=== PATIENT | male | born 1955 | race American Indian/Alaskan Native ===

== ENCOUNTER 2017-01-31 17:37 | Inpatient (IN) | payer MEDICARE ==
[2017-01-31 21:13] LABS: Hematocrit 46.9 % (35.5-45.6); Hemoglobin 14.9 gm/dl (11.8-15.2); Mean Corpuscular HGB Conc 32 % (32-34); Mean Corpuscular Volume 77 fl (84-94); Red Blood Count 6.11 M/mm3 (3.65-5.03); Red Cell Distribution Width 15.6 % (13.2-15.2); White Blood Count 12.8 K/mm3 (4.5-11.0)
[2017-01-31 21:15] LABS: Mean Corpuscular Hemoglobin 24 pg (28-32)
[2017-01-31 21:25] LABS: Bacteria,Urine 2+ /HPF (Negative); Bilirubin,Urine NEG (Negative); Blood,Urine SM (Negative); Ketones,Urine NEG (Negative); Leukocyte Esterase,Urine LG (Negative); Mucus,Urine FEW /HPF; Nitrite,Urine NEG (Negative)
[2017-01-31] MEDS ORDERED: cefTRIAXone 1 GM in NACL 0.9% 20 ML IV ONE (21:41)
[2017-01-31 21:58] LABS: Basophils % (Manual) 0 % (0.0-1.8); Blastocytes % (Manual) 0 %; Eosinophils % (Manual) 0 % (0.0-4.3)
[2017-01-31 21:59] LABS: Platelet Estimate Appears Decreased
[2017-01-31 22:00] LABS: Target Cells Few
[2017-01-31 22:01] LABS: Anisocytosis Few; Diff Status Complete; Platelet Count 36 K/mm3 (140-440); Sodium TNR mmol/L (137-145)
[2017-01-31 22:03] LABS: Potassium TNR mmol/L (3.6-5.0)
[2017-01-31 22:04] LABS: Anion Gap TNR mmol/L; BUN/Creatinine Ratio TNR; Blood Urea Nitrogen TNR mg/dL (9-20); Carbon Dioxide TNR mmol/L (22-30); Chloride TNR mmol/L (98-107); Glucose TNR mg/dL (75-100)
[2017-01-31 22:05] LABS: Alanine Aminotransferase TNR units/L (7-56); Albumin TNR g/dL (3.9-5); Albumin/Globulin Ratio TNR %; Alkaline Phosphatase TNR units/L (35-129); Bilirubin,Total TNR mg/dL (0.1-1.2); Calcium TNR mg/dL (8.4-10.2); Total Protein TNR g/dL (6.3-8.2)
--- NOTE | 2017-01-31 22:53 | Emergency Department Report ---
HPI - General Chief Complaint: Fever Time Seen by Provider: 01/31/17 20:03 - HPI HPI: This is a 61 year-old male presents to the emergency department by EMS from his care home in [place] with report of a fever and some coffee-ground emesis. He has a past medical history of dementia, GERD, HIV , seizures, CVA and hypertension. His physician is listed as a Dr. Stone. The patient himself is a poor story and secondary to his current and possibly chronic conditions. He did not receive anything for her symptoms in route. ED Past Medical Hx - Past Medical History Previous Medical History?: Yes Hx GERD: Yes Hx Seizures: Yes Hx Dementia: Yes Hx HIV: Yes - Surgical History Additional Surgical History: Unknown - Social History Smoking Status: Unknown if ever smoked - Medications Home Medications: Home Medications Medication Instructions Recorded Confirmed Last Taken Type Acetaminophen 650 mg FEEDTUBE Q6HR PRN 02/01/17 02/01/17 Unknown History Coreg 12.5 mg FEEDTUBE Q12HR 02/01/17 02/01/17 Unknown History Docusate Sodium 100 mg FEEDTUBE BID 02/01/17 02/01/17 Unknown History Famotidine [Pepcid] 20 mg FEEDTUBE Q12HR 02/01/17 02/01/17 Unknown History Ferrous Sulfate [Ferosul Oral Liq] 220 mg FEEDTUBE QDAY 02/01/17 02/01/17 Unknown History Glycerin 1 suppositor WA QDAY PRN 02/01/17 02/01/17 Unknown History Keppra ORAL LIQ 1,500 mg FEEDTUBE Q12HR 02/01/17 02/01/17 Unknown History Senna S Tablet 17.2 mg FEEDTUBE QHS 02/01/17 02/01/17 Unknown History VALPROIC ACID Liq 125 mg FEEDTUBE Q8HR 02/01/17 02/01/17 Unknown History traMADol 100 mg FEEDTUBE Q8HR 02/01/17 02/01/17 01/31/17 14:00 History ED Review of Systems ROS: Stated complaint: GI BLEED Other details as noted in HPI Comment: Unobtainable due to pts medical conditions Physical Exam - Physical Exam Vital Signs: Vital Signs 01/31/17 01/31/17 01/31/17 18:34 19:49 19:50 Temperature 99.6 F Pulse Rate 104 H Respiratory 22 Rate Blood Pressure 98/79 Blood Pressure 98/79 [Left] O2 Sat by Pulse 96 96 97 Oximetry 01/31/17 01/31/17 01/31/17 19:51 19:53 19:54 Temperature Pulse Rate 109 H 108 H 110 H Respiratory 15 13 Rate Blood Pressure 113/81 113/81 Blood Pressure [Left] O2 Sat by Pulse 98 97 93 Oximetry 01/31/17 01/31/17 01/31/17 19:55 19:57 19:59 Temperature Pulse Rate 108 H 107 H 107 H Respiratory 25 H 29 H 26 H Rate Blood Pressure 113/81 113/81 113/81 Blood Pressure [Left] O2 Sat by Pulse 97 97 100 Oximetry 01/31/17 01/31/17 01/31/17 20:19 20:20 20:21 Temperature Pulse Rate Respiratory Rate Blood Pressure 91/61 95/68 95/68 Blood Pressure [Left] O2 Sat by Pulse 97 98 95 Oximetry 01/31/17 01/31/17 01/31/17 20:23 20:25 20:27 Temperature Pulse Rate Respiratory Rate Blood Pressure 95/68 95/68 95/68 Blood Pressure [Left] O2 Sat by Pulse 97 93 93 Oximetry 01/31/17 01/31/17 01/31/17 20:29 20:31 20:32 Temperature Pulse Rate Respiratory Rate Blood Pressure 95/68 95/68 Blood Pressure [Left] O2 Sat by Pulse 95 100 92 Oximetry 01/31/17 01/31/17 01/31/17 20:33 20:35 20:37 Temperature Pulse Rate 108 H 108 H 108 H Respiratory 23 22 Rate Blood Pressure 95/68 95/68 95/68 Blood Pressure [Left] O2 Sat by Pulse 96 97 98 Oximetry 01/31/17 01/31/17 01/31/17 20:39 20:40 20:41 Temperature Pulse Rate 107 H 108 H 109 H Respiratory 22 22 24 Rate Blood Pressure 95/68 98/77 98/77 Blood Pressure [Left] O2 Sat by Pulse 95 96 96 Oximetry 01/31/17 01/31/17 01/31/17 20:43 20:45 20:47 Temperature Pulse Rate 109 H 108 H 105 H Respiratory 25 H 22 28 H Rate Blood Pressure 98/77 98/77 98/77 Blood Pressure [Left] O2 Sat by Pulse 96 97 98 Oximetry 01/31/17 01/31/17 01/31/17 20:49 20:51 20:52 Temperature Pulse Rate 107 H 106 H 105 H Respiratory 17 19 22 Rate Blood Pressure 98/77 98/77 95/68 Blood Pressure [Left] O2 Sat by Pulse 98 97 98 Oximetry 01/31/17 01/31/17 01/31/17 20:53 20:55 20:57 Temperature Pulse Rate 115 H 108 H 106 H Respiratory 30 H 20 21 Rate Blood Pressure 95/68 95/68 95/68 Blood Pressure [Left] O2 Sat by Pulse 94 97 98 Oximetry 01/31/17 01/31/17 01/31/17 20:58 20:59 21:00 Temperature Pulse Rate 106 H 105 H 106 H Respiratory 20 19 21 Rate Blood Pressure 98/77 95/68 100/82 Blood Pressure [Left] O2 Sat by Pulse 98 98 99 Oximetry 01/31/17 01/31/17 01/31/17 21:01 21:03 21:05 Temperature Pulse Rate 106 H 106 H 107 H Respiratory 23 18 21 Rate Blood Pressure 100/82 100/82 100/82 Blood Pressure [Left] O2 Sat by Pulse 99 96 Oximetry 01/31/17 01/31/17 01/31/17 21:07 21:09 21:11 Temperature Pulse Rate 107 H 105 H 112 H Respiratory 25 H 27 H 22 Rate Blood Pressure 100/82 100/82 100/82 Blood Pressure [Left] O2 Sat by Pulse 97 96 93 Oximetry 01/31/17 01/31/17 01/31/17 21:13 21:15 21:17 Temperature Pulse Rate 106 H 107 H 106 H Respiratory 24 24 23 Rate Blood Pressure 100/82 100/82 100/82 Blood Pressure [Left] O2 Sat by Pulse 96 98 94 Oximetry 01/31/17 01/31/17 01/31/17 21:19 21:21 21:23 Temperature Pulse Rate 107 H 108 H 108 H Respiratory 26 H 23 20 Rate Blood Pressure 100/82 100/82 98/77 Blood Pressure [Left] O2 Sat by Pulse 93 97 98 Oximetry 01/31/17 01/31/17 01/31/17 21:25 21:27 21:29 Temperature Pulse Rate 105 H 105 H 108 H Respiratory 25 H 26 H 40 H Rate Blood Pressure 98/77 98/77 98/77 Blood Pressure [Left] O2 Sat by Pulse 97 95 98 Oximetry 01/31/17 01/31/17 01/31/17 21:31 21:33 21:34 Temperature Pulse Rate 105 H 94 H 107 H Respiratory 27 H 23 18 Rate Blood Pressure 98/77 98/77 108/78 Blood Pressure [Left] O2 Sat by Pulse 96 96 94 Oximetry 01/31/17 01/31/17 01/31/17 21:35 21:37 21:39 Temperature Pulse Rate 107 H 107 H 112 H Respiratory 20 15 16 Rate Blood Pressure 108/78 108/78 108/78 Blood Pressure [Left] O2 Sat by Pulse 98 96 87 Oximetry 01/31/17 01/31/17 21:40 21:41 Temperature Pulse Rate 109 H 107 H Respiratory 22 20 Rate Blood Pressure 107/81 107/81 Blood Pressure [Left] O2 Sat by Pulse 91 96 Oximetry Physical Exam: GENERAL: Patient is chronically ill and debilitated appearing. Patient is very thin and borderline cachectic. HENT: Normocephalic. Atraumatic. Patient has moist mucous membranes. EYES: Extraocular motions are intact. NECK: Supple. Trachea is midline. CHEST/LUNGS: Clear to auscultation. There is no respiratory distress noted. HEART/CARDIOVASCULAR: Regular. There is no tachycardia. There is no gallop rub or murmur. ABDOMEN: Abdomen is soft, nontender. Patient has normal bowel sounds. There is no abdominal distention. There is a feeding tube seen in the mid left abdomen. SKIN: Skin is warm and dry. NEURO: The patient is awake and follows some commands. Withdraws to painful stimuli. MUSCULOSKELETAL: There is no tenderness. Patient has lower extremity contractures. ED Course Vital Signs 01/31/17 01/31/17 01/31/17 18:34 19:49 19:50 Temperature 99.6 F Pulse Rate 104 H Respiratory 22 Rate Blood Pressure 98/79 Blood Pressure 98/79 [Left] O2 Sat by Pulse 96 96 97 Oximetry 01/31/17 01/31/17 01/31/17 19:51 19:53 19:54 Temperature Pulse Rate 109 H 108 H 110 H Respiratory 15 13 Rate Blood Pressure 113/81 113/81 Blood Pressure [Left] O2 Sat by Pulse 98 97 93 Oximetry 01/31/17 01/31/17 01/31/17 19:55 19:57 19:59 Temperature Pulse Rate 108 H 107 H 107 H Respiratory 25 H 29 H 26 H Rate Blood Pressure 113/81 113/81 113/81 Blood Pressure [Left] O2 Sat by Pulse 97 97 100 Oximetry 01/31/17 01/31/17 01/31/17 20:19 20:20 20:21 Temperature Pulse Rate Respiratory Rate Blood Pressure 91/61 95/68 95/68 Blood Pressure [Left] O2 Sat by Pulse 97 98 95 Oximetry 01/31/17 01/31/17 01/31/17 20:23 20:25 20:27 Temperature Pulse Rate Respiratory Rate Blood Pressure 95/68 95/68 95/68 Blood Pressure [Left] O2 Sat by Pulse 97 93 93 Oximetry 01/31/17 01/31/17 01/31/17 20:29 20:31 20:32 Temperature Pulse Rate Respiratory Rate Blood Pressure 95/68 95/68 Blood Pressure [Left] O2 Sat by Pulse 95 100 92 Oximetry 01/31/17 01/31/17 01/31/17 20:33 20:35 20:37 Temperature Pulse Rate 108 H 108 H 108 H Respiratory 23 22 Rate Blood Pressure 95/68 95/68 95/68 Blood Pressure [Left] O2 Sat by Pulse 96 97 98 Oximetry 01/31/17 01/31/17 01/31/17 20:39 20:40 20:41 Temperature Pulse Rate 107 H 108 H 109 H Respiratory 22 22 24 Rate Blood Pressure 95/68 98/77 98/77 Blood Pressure [Left] O2 Sat by Pulse 95 96 96 Oximetry 01/31/17 01/31/17 01/31/17 20:43 20:45 20:47 Temperature Pulse Rate 109 H 108 H 105 H Respiratory 25 H 22 28 H Rate Blood Pressure 98/77 98/77 98/77 Blood Pressure [Left] O2 Sat by Pulse 96 97 98 Oximetry 01/31/17 01/31/17 01/31/17 20:49 20:51 20:52 Temperature Pulse Rate 107 H 106 H 105 H Respiratory 17 19 22 Rate Blood Pressure 98/77 98/77 95/68 Blood Pressure [Left] O2 Sat by Pulse 98 97 98 Oximetry 01/31/17 01/31/17 01/31/17 20:53 20:55 20:57 Temperature Pulse Rate 115 H 108 H 106 H Respiratory 30 H 20 21 Rate Blood Pressure 95/68 95/68 95/68 Blood Pressure [Left] O2 Sat by Pulse 94 97 98 Oximetry 01/31/17 01/31/17 01/31/17 20:58 20:59 21:00 Temperature Pulse Rate 106 H 105 H 106 H Respiratory 20 19 21 Rate Blood Pressure 98/77 95/68 100/82 Blood Pressure [Left] O2 Sat by Pulse 98 98 99 Oximetry 01/31/17 01/31/17 01/31/17 21:01 21:03 21:05 Temperature Pulse Rate 106 H 106 H 107 H Respiratory 23 18 21 Rate Blood Pressure 100/82 100/82 100/82 Blood Pressure [Left] O2 Sat by Pulse 99 96 Oximetry 01/31/17 01/31/17 01/31/17 21:07 21:09 21:11 Temperature Pulse Rate 107 H 105 H 112 H Respiratory 25 H 27 H 22 Rate Blood Pressure 100/82 100/82 100/82 Blood Pressure [Left] O2 Sat by Pulse 97 96 93 Oximetry 01/31/17 01/31/17 01/31/17 21:13 21:15 21:17 Temperature Pulse Rate 106 H 107 H 106 H Respiratory 24 24 23 Rate Blood Pressure 100/82 100/82 100/82 Blood Pressure [Left] O2 Sat by Pulse 96 98 94 Oximetry 01/31/17 01/31/17 01/31/17 21:19 21:21 21:23 Temperature Pulse Rate 107 H 108 H 108 H Respiratory 26 H 23 20 Rate Blood Pressure 100/82 100/82 98/77 Blood Pressure [Left] O2 Sat by Pulse 93 97 98 Oximetry 01/31/17 01/31/17 01/31/17 21:25 21:27 21:29 Temperature Pulse Rate 105 H 105 H 108 H Respiratory 25 H 26 H 40 H Rate Blood Pressure 98/77 98/77 98/77 Blood Pressure [Left] O2 Sat by Pulse 97 95 98 Oximetry 01/31/17 01/31/17 01/31/17 21:31 21:33 21:34 Temperature Pulse Rate 105 H 94 H 107 H Respiratory 27 H 23 18 Rate Blood Pressure 98/77 98/77 108/78 Blood Pressure [Left] O2 Sat by Pulse 96 96 94 Oximetry 01/31/17 01/31/17 01/31/17 21:35 21:37 21:39 Temperature Pulse Rate 107 H 107 H 112 H Respiratory 20 15 16 Rate Blood Pressure 108/78 108/78 108/78 Blood Pressure [Left] O2 Sat by Pulse 98 96 87 Oximetry 01/31/17 01/31/17 21:40 21:41 Temperature Pulse Rate 109 H 107 H Respiratory 22 20 Rate Blood Pressure 107/81 107/81 Blood Pressure [Left] O2 Sat by Pulse 91 96 Oximetry ED Medical Decision Making - Lab Data Result diagrams: 02/01/17 12:35 01/31/17 22:50 - Radiology Data Radiology results: report reviewed, image reviewed interpreted by me: Chest x-ray does not show any acute process. There are no pleural effusions, obvious pneumonia and there is no pneumothorax. Abdominal x-ray shows nonspecific nonobstructive bowel gas. CT HEAD WITHOUT CONTRAST: HISTORY: Fever, feeling sick. TECHNIQUE: Sequential CT images in 2.5 mm intervals. FINDINGS: No previous exam. There is moderate to severe volume loss for this patient's age. The ventricles are prominent but symmetric. This is probably secondary to central volume loss and not hydrocephalus. The basal cisterns are patent. There is severe diffuse hypoattenuation in the white matter primarily within the frontal lobes consistent with advanced chronic ischemic change. Small chronic cortical infarcts are suspected in the right frontal lobe. Solitary bilateral chronic lacunar infarcts are identified in both basal ganglia. There is no evidence for hemorrhage, mass, extra-axial fluid collection or large area of acute ischemia on noncontrast CT. Mild chronic ethmoid sinusitis is noted. The remaining sinuses are clear. The mastoid air cells are well-aerated. IMPRESSION: No acute intracranial process appreciated. Chronic findings as outlined above. Transcribed By: TTR Dictated By: SHANE YOUNG JR, MD Electronically Authenticated By: SHANE YOUNG JR, MD Signed Date/Time: 02/01/17 0751 - Medical Decision Making 61-year-old presents from care home with history of HIV. He appears almost cachectic and malnourished. He had recorded fever at the nursing facility and some tachycardia here, mild leukocytosis, UTI all appearing to show sepsis. He was placed on antibiotics. There was no sign of the coffee-ground emesis that was mentioned for transportation. Patient admitted to the hospital and accepted by Dr. Fisher. Critical Care Time: No Critical care attestation.: If time is entered above; I have spent that time in minutes in the direct care of this critically ill patient, excluding procedure time. ED Disposition Clinical Impression: Toxic encephalopathy Sepsis Qualifiers: Sepsis type: sepsis due to unspecified organism Qualified Code(s): A41.9 - Sepsis, unspecified organism UTI (urinary tract infection) Qualifiers: Urinary tract infection type: acute cystitis Hematuria presence: without hematuria Qualified Code(s): N30.00 - Acute cystitis without hematuria Disposition: OP ADMIT IP TO THIS HOSP Is pt being admited?: Yes Condition: Fair
--- NOTE | 2017-01-31 23:06 | XRay Report ---
FINAL REPORT EXAM: XR ABD SERIES W CXR 1V HISTORY: GI Bleed TECHNIQUE: Supine and decubitus views of the abdomen PRIORS: None. FINDINGS: Moderate amount of stool and gas present within the colon. No evidence of colonic or small bowel dilatation. No signs of free air. No abnormal calcifications are identified. IMPRESSION: Nonobstructive bowel gas pattern. No acute abnormality seen.
[2017-01-31 23:38] LABS: Alanine Aminotransferase 145 units/L (7-56); Albumin 3.2 g/dL (3.9-5); Albumin/Globulin Ratio 0.5 %; Alkaline Phosphatase 73 units/L (35-129); Anion Gap 15 mmol/L; BUN/Creatinine Ratio 62; Blood Urea Nitrogen 37 mg/dL (9-20); Calcium 9.2 mg/dL (8.4-10.2); Carbon Dioxide 27 mmol/L (22-30); Chloride 106.8 mmol/L (98-107); Glucose 109 mg/dL (75-100); Potassium 3.7 mmol/L (3.6-5.0); Sodium 145 mmol/L (137-145); Total Protein 9.5 g/dL (6.3-8.2)
[2017-01-31] MEDS ORDERED: NACL 0.9% 500 ML 500 ML IV ONE (23:44)
--- NOTE | 2017-02-01 00:44 | History and Physical Report ---
History of Present Illness Chief complaint: fever, confusion History of present illness: 61 YO Male Senior Care Resident at [place] with HIV, Severe Malnutrition, Seizure Disorder, Dementia presents to ED for evaluation. Pt unable to provide history due to stupor, and confusion. Pt history taked from ED staff, and medical record, as well as SNF staff. As per staff, the patient was found to have fever, and coffee-ground emesis today. EMS notified, and patient transported to [facility] for evaluation. Pt seen and evaluated in ED and found to have Evidence of sepsis. Pt initiated on sepsis protocol. No reports of chills, NVD, Syncope, BRBPR, Recent ill contacts, leg swelling/calf pain, prolonged travel/immobility, Trauma, or medication noncompliance. Past History Past Medical History: GERD, HIV/AIDS, stroke Past Surgical History: Other (G tube placement) Social history: single. denies: smoking, alcohol abuse, prescription drug abuse Family history: hypertension Medications and Allergies Allergies Allergy/AdvReac Type Severity Reaction Status Date / Time No Known Allergies Allergy Unverified 01/31/17 20:00 Home Medications Medication Instructions Recorded Confirmed Last Taken Type Acetaminophen 650 mg FEEDTUBE Q6HR PRN 02/01/17 02/01/17 Unknown History Coreg 12.5 mg FEEDTUBE Q12HR 02/01/17 02/01/17 Unknown History Docusate Sodium 100 mg FEEDTUBE BID 02/01/17 02/01/17 Unknown History Famotidine [Pepcid] 20 mg FEEDTUBE Q12HR 02/01/17 02/01/17 Unknown History Ferrous Sulfate [Ferosul Oral Liq] 220 mg FEEDTUBE QDAY 02/01/17 02/01/17 Unknown History Glycerin 1 suppositor WA QDAY PRN 02/01/17 02/01/17 Unknown History Keppra ORAL LIQ 1,500 mg FEEDTUBE Q12HR 02/01/17 02/01/17 Unknown History Senna S Tablet 17.2 mg FEEDTUBE QHS 02/01/17 02/01/17 Unknown History VALPROIC ACID Liq 125 mg FEEDTUBE Q8HR 02/01/17 02/01/17 Unknown History traMADol 100 mg FEEDTUBE Q8HR 02/01/17 02/01/17 01/31/17 14:00 History Review of Systems ROS unobtainable: due to mental status Exam - Constitutional Vitals: Temp Pulse Resp BP Pulse Ox 98.6 F 103 H 23 115/76 98 01/31/17 23:19 01/31/17 23:41 01/31/17 23:41 01/31/17 23:41 01/31/17 23:41 General appearance: Present: mild distress, cachectic - EENT Eyes: Present: PERRL ENT: hearing intact, clear oral mucosa - Neck Neck: Present: supple, normal ROM - Respiratory Respiratory: bilateral: diminished - Cardiovascular Heart Sounds: Present: S1 & S2. Absent: rub, click - Extremities Extremities: pulses symmetrical, No edema Peripheral Pulses: abnormal (Capillary refill: 4 seconds) - Abdominal General gastrointestinal: Present: soft, non-distended, other (Peg in place) Male genitourinary: Present: normal - Integumentary Integumentary: Present: clear, dry, clammy, decreased turgor - Musculoskeletal Musculoskeletal: generalized weakness - Psychiatric Psychiatric: no intact judgment & insight, no memory intact - Neurologic Neurologic: no gait normal Results - Labs CBC & Chem 7: 01/31/17 20:35 01/31/17 22:50 Labs: Abnormal lab results 01/31/17 01/31/17 01/31/17 Range/Units 20:35 21:12 22:50 WBC 12.8 H (4.5-11.0) K/mm3 RBC 6.11 H (3.65-5.03) M/mm3 Hct 46.9 H (35.5-45.6) % MCV 77 L (84-94) fl MCH 24 L (28-32) pg RDW 15.6 H (13.2-15.2) % Plt Count 36 L (140-440) K/mm3 Lymphocytes % (Manual) 37.0 H (13.4-35.0) % Monocytes % (Manual) 19.0 H (0.0-7.3) % Monocytes # (Manual) 2.4 H (0.0-0.8) K/mm3 BUN 37 H (9-20) mg/dL Creatinine 0.6 L (0.8-1.5) mg/dL Glucose 109 H (75-100) mg/dL AST 234 H (5-40) units/L ALT 145 H (7-56) units/L Total Protein 9.5 H (6.3-8.2) g/dL Albumin 3.2 L (3.9-5) g/dL Urine WBC (Auto) 88.0 H (0.0-6.0) /HPF Assessment and Plan - Patient Problems (1) Sepsis Current Visit: Yes Status: Acute Qualifiers: Sepsis type: sepsis due to unspecified organism Qualified Code(s): A41.9 - Sepsis, unspecified organism Plan to address problem: IV abx, IVF resuscitation, monitor uop q shift, blood cultures, urinalysis, serial lactic acid, repeat cbc,bmp (2) UTI (urinary tract infection) Current Visit: Yes Status: Acute Plan to address problem: IV abx, IVF, supportive care, (3) Toxic encephalopathy Current Visit: Yes Status: Acute Plan to address problem: Treat sepsis, supportive care, IVF resuscitation. (4) HIV encephalopathy Current Visit: Yes Status: Acute Plan to address problem: Supportive care, CT head without contrast, outpatient ID F/U, (5) Seizure Current Visit: Yes Status: Acute Plan to address problem: resume anti epileptic therapy. neuro checks, supportive care. (6) DVT prophylaxis Current Visit: Yes Status: Acute
[2017-02-01] MEDS ORDERED: DULCOLAX PR PRN (00:46)
[2017-02-01] MEDS ORDERED: TYLENOL PO PRN (00:46)
[2017-02-01] MEDS ORDERED: ZOFRAN IV PRN (00:46)
[2017-02-01] MEDS ORDERED: PROVENTIL IH PRN (00:46)
[2017-02-01] MEDS ORDERED: MILK OF MAGNESIA PO PRN (00:46)
[2017-02-01] MEDS ORDERED: VANCOMYCIN VIAL IV ONE (00:49)
[2017-02-01] MEDS ORDERED: NACL 0.9% 1000 ML IV ONE (00:49)
[2017-02-01] MEDS ORDERED: VANCOMYCIN PHARMACY TO DOSE IV SCH (02:00)
[2017-02-01] MEDS ORDERED: VANCOMYCIN/NS 1 GM/250 ML 1 GM/250 ML BAG IV ONE (03:00)
[2017-02-01] MEDS ORDERED: TYLENOL FEEDTUBE PRN (04:47)
[2017-02-01] MEDS ORDERED: GLYCERIN ADULT 2 GM PR PRN (04:47)
[2017-02-01] MEDS ORDERED: ULTRAM FEEDTUBE PRN (06:00)
--- NOTE | 2017-02-01 07:56 | Cat Scan Report ---
CT HEAD WITHOUT CONTRAST: HISTORY: Fever, feeling sick. TECHNIQUE: Sequential CT images in 2.5 mm intervals. FINDINGS: No previous exam. There is moderate to severe volume loss for this patient's age. The ventricles are prominent but symmetric. This is probably secondary to central volume loss and not hydrocephalus. The basal cisterns are patent. There is severe diffuse hypoattenuation in the white matter primarily within the frontal lobes consistent with advanced chronic ischemic change. Small chronic cortical infarcts are suspected in the right frontal lobe. Solitary bilateral chronic lacunar infarcts are identified in both basal ganglia. There is no evidence for hemorrhage, mass, extra-axial fluid collection or large area of acute ischemia on noncontrast CT. Mild chronic ethmoid sinusitis is noted. The remaining sinuses are clear. The mastoid air cells are well-aerated. IMPRESSION: No acute intracranial process appreciated. Chronic findings as outlined above.
[2017-02-01] MEDS: DepaKENE Liq FEEDTUBE SCH ×3 (07:58→22:40)
[2017-02-01] MEDS ORDERED: ROCEPHIN/NS 2 GM/100 ML 2 GM/100 ML BAG IV SCH (10:00)
[2017-02-01] MEDS ORDERED: KEPPRA FEEDTUBE SCH (10:00)
[2017-02-01] MEDS ORDERED: COREG FEEDTUBE SCH (10:00)
[2017-02-01] MEDS ORDERED: PEPCID FEEDTUBE SCH (10:00)
[2017-02-01 13:04] LABS: Mean Corpuscular HGB Conc 31 % (32-34); Mean Corpuscular Volume 78 fl (84-94); Red Blood Count 5.91 M/mm3 (3.65-5.03); Red Cell Distribution Width 15.7 % (13.2-15.2); White Blood Count 8.2 K/mm3 (4.5-11.0)
[2017-02-01 13:05] LABS: Hemoglobin 14.2 gm/dl (11.8-15.2); Mean Corpuscular Hemoglobin 24 pg (28-32)
[2017-02-01 13:29] LABS: Albumin 2.9 g/dL (3.9-5); Albumin/Globulin Ratio 0.5 %; Bilirubin,Direct 0.2 mg/dL (0-0.2); Bilirubin,Indirect 0.6 mg/dL; Bilirubin,Total 0.8 mg/dL (0.1-1.2); Total Protein 9.2 g/dL (6.3-8.2)
[2017-02-01 14:18] LABS: Basophils % (Manual) 0 % (0.0-1.8); Blastocytes % (Manual) 0 %; Eosinophils % (Manual) 0 % (0.0-4.3)
[2017-02-01 14:19] LABS: Anisocytosis RARE; Diff Status Complete; Platelet Count 124 K/mm3 (140-440); Platelet Estimate Consistent w Auto; Target Cells Rare
[2017-02-01] MEDS: ROCEPHIN IV SCH (14:21)
[2017-02-01] MEDS: NACL 0.9% IV SCH (14:21)
[2017-02-01] MEDS: FERROUS SULFATE FEEDTUBE SCH (14:23)
[2017-02-01] MEDS: COLACE FEEDTUBE SCH ×2 (14:23→22:40)
[2017-02-01] MEDS ORDERED: D5/0.45NS 1,000 ML IV SCH (15:00)
--- NOTE | 2017-02-01 16:11 | Progress Note ---
Assessment and Plan Assessment and plan: Patient is a 61 YO Male Longterm Resident at [facility] with HIV, Severe Malnutrition, Seizure Disorder, Dementia presents to ED for evaluation for fever and coffee ground emesis. Pt unable to provide history due to stupor, and confusion. Pt history taked from ED staff, and medical record, as well as SNF staff. As per staff, the patient was found to have fever, and coffee-ground emesis today. EMS notified, and patient transported to [facility] for evaluation. EMS reports high fever but non is documented on arrival to the hospital, His PEG tube was clamped in the ER and appears possibly disloged. P Sepsis- Possible secondary to acute cystits-POA Acute Cystitis Chronic Metabolic Encephalopathy HIV infection Seizure Disorder Chronic immobility due to fraility. Sacral Pressure Ulcer stage 1 Plan: * Continue supportive care * GI evaluation * IV fluids resuscitation * Monitor H/H appears stable * Repeat PLT normalized * DVT/GI prophy * No family at bedside * Passive range of motion * Wound care eval and treat * Pressure prevention strategy History Interval history: Patient seen and examined, in no acute distress, but with confusion, appears to be baseline. Hospitalist Physical - Physical exam Narrative exam: VITAL SIGNS: Reviewed. GENERAL: The patient appeared chronically ill. Vital signs as documented. HEAD: No signs of head trauma. EYES: Pupils are equal. Extraocular motions intact. EARS: Hearing grossly intact. MOUTH: Right facial droop.. NECK: No adenopathy, no JVD. CHEST: Chest with clear breath sounds bilaterally. No wheezes, rales, or rhonchi. CARDIAC: Regular rate and rhythm. S1 and S2, without murmurs, gallops, or rubs. VASCULAR: No Edema. Peripheral pulses normal and equal in all extremities. ABDOMEN: Soft, without detectable tenderness. Scaphoid, PEG tube in place No sign of distention. No rebound or guarding, and no masses palpated. Bowel Sounds normal. MUSCULOSKELETAL: Contracted. Extremities without clubbing, cyanosis or edema. NEUROLOGIC EXAM: Awake oriented to person only. Follow some commands PSYCHIATRIC: Mood normal. SKIN: Left hip ulcer and stage I pressure ulcer. - Constitutional Vitals: Temp Pulse Resp BP Pulse Ox 98.1 F 106 H 44 H 114/86 98 02/01/17 08:52 02/01/17 02:16 02/01/17 08:52 02/01/17 08:52 02/01/17 12:19 General appearance: Present: mild distress, cachectic Results - Labs CBC & Chem 7: 02/01/17 12:35 01/31/17 22:50 Labs: Laboratory Last Values WBC 8.2 K/mm3 (4.5-11.0) 02/01/17 12:35 RBC 5.91 M/mm3 (3.65-5.03) H 02/01/17 12:35 Hgb 14.2 gm/dl (11.8-15.2) 02/01/17 12:35 Hct 46.0 % (35.5-45.6) H 02/01/17 12:35 MCV 78 fl (84-94) L 02/01/17 12:35 MCH 24 pg (28-32) L 02/01/17 12:35 MCHC 31 % (32-34) L 02/01/17 12:35 RDW 15.7 % (13.2-15.2) H 02/01/17 12:35 Plt Count 124 K/mm3 (140-440) L D 02/01/17 12:35 [place] % (Auto) Clutch Assembler 02/01/17 12:35 Lymph # Clutch Assembler 01/31/17 20:35 Add Manual Diff Complete 02/01/17 12:35 Total Counted 100 02/01/17 12:35 Seg Neutrophils % Clutch Assembler 01/31/17 20:35 Seg Neuts % (Manual) 42.0 % (40.0-70.0) 02/01/17 12:35 Band Neutrophils % 4.0 % 02/01/17 12:35 Lymphocytes % (Manual) 36.0 % (13.4-35.0) H 02/01/17 12:35 Reactive Lymphs % (Man) 0 % 02/01/17 12:35 Monocytes % (Manual) 18.0 % (0.0-7.3) H 02/01/17 12:35 Eosinophils % (Manual) 0 % (0.0-4.3) 02/01/17 12:35 Basophils % (Manual) 0 % (0.0-1.8) 02/01/17 12:35 Metamyelocytes % 0 % 02/01/17 12:35 Myelocytes % 0 % 02/01/17 12:35 Promyelocytes % 0 % 02/01/17 12:35 Blast Cells % 0 % 02/01/17 12:35 Nucleated RBC % Not Reportable 02/01/17 12:35 Seg Neutrophils # Man 3.4 K/mm3 (1.8-7.7) 02/01/17 12:35 Band Neutrophils # 0.3 K/mm3 02/01/17 12:35 Lymphocytes # (Manual) 3.0 K/mm3 (1.2-5.4) 02/01/17 12:35 Abs React Lymphs (Man) 0.0 K/mm3 02/01/17 12:35 Monocytes # (Manual) 1.5 K/mm3 (0.0-0.8) H 02/01/17 12:35 Eosinophils # (Manual) 0.0 K/mm3 (0.0-0.4) 02/01/17 12:35 Basophils # (Manual) 0.0 K/mm3 (0.0-0.1) 02/01/17 12:35 Metamyelocytes # 0.0 K/mm3 02/01/17 12:35 Myelocytes # 0.0 K/mm3 02/01/17 12:35 Promyelocytes # 0.0 K/mm3 02/01/17 12:35 Blast Cells # 0.0 K/mm3 02/01/17 12:35 WBC Morphology Not Reportable 02/01/17 12:35 Hypersegmented Neuts Not Reportable 02/01/17 12:35 Hyposegmented Neuts Not Reportable 02/01/17 12:35 Hypogranular Neuts Not Reportable 02/01/17 12:35 Smudge Cells Not Reportable 02/01/17 12:35 Toxic Granulation Not Reportable 02/01/17 12:35 Toxic Vacuolation Not Reportable 02/01/17 12:35 Dohle Bodies Not Reportable 02/01/17 12:35 Pelger-Huet Anomaly Not Reportable 02/01/17 12:35 Inessa Rods Not Reportable 02/01/17 12:35 Platelet Estimate Consistent w auto 02/01/17 12:35 Clumped Platelets Not Reportable 02/01/17 12:35 Plt Clumps, EDTA Not Reportable 02/01/17 12:35 Large Platelets Not Reportable 02/01/17 12:35 Giant Platelets Not Reportable 02/01/17 12:35 Platelet Satelliting Not Reportable 02/01/17 12:35 Plt Morphology Comment Not Reportable 02/01/17 12:35 RBC Morphology Not Reportable 02/01/17 12:35 Dimorphic RBCs Not Reportable 02/01/17 12:35 Polychromasia Not Reportable 02/01/17 12:35 Hypochromasia Not Reportable 02/01/17 12:35 Poikilocytosis Not Reportable 02/01/17 12:35 Anisocytosis Rare 02/01/17 12:35 Microcytosis Not Reportable 02/01/17 12:35 Macrocytosis Not Reportable 02/01/17 12:35 Spherocytes Not Reportable 02/01/17 12:35 Pappenheimer Bodies Not Reportable 02/01/17 12:35 Sickle Cells Not Reportable 02/01/17 12:35 Target Cells Rare 02/01/17 12:35 Tear Drop Cells Not Reportable 02/01/17 12:35 Ovalocytes Not Reportable 02/01/17 12:35 Helmet Cells Not Reportable 02/01/17 12:35 [place] Bodies Not Reportable 02/01/17 12:35 [place] Rings Not Reportable 02/01/17 12:35 Magnet Cells Not Reportable 02/01/17 12:35 Bite Cells Not Reportable 02/01/17 12:35 Crenated Cell Not Reportable 02/01/17 12:35 Elliptocytes Not Reportable 02/01/17 12:35 Acanthocytes (Spur) Not Reportable 02/01/17 12:35 Rouleaux Not Reportable 02/01/17 12:35 Hemoglobin C Crystals Not Reportable 02/01/17 12:35 Schistocytes Not Reportable 02/01/17 12:35 Malaria parasites Not Reportable 02/01/17 12:35 Vamshi Bodies Not Reportable 02/01/17 12:35 Hem Pathologist Commnt No 02/01/17 12:35 Sodium 145 mmol/L (137-145) 01/31/17 22:50 Potassium 3.7 mmol/L (3.6-5.0) 01/31/17 22:50 Chloride 106.8 mmol/L (98-107) 01/31/17 22:50 Carbon Dioxide 27 mmol/L (22-30) 01/31/17 22:50 Anion Gap 15 mmol/L 01/31/17 22:50 BUN 37 mg/dL (9-20) H 01/31/17 22:50 Creatinine 0.6 mg/dL (0.8-1.5) L 01/31/17 22:50 Estimated GFR > 60 ml/min 01/31/17 22:50 BUN/Creatinine Ratio 62 % 01/31/17 22:50 Glucose 109 mg/dL (75-100) H 01/31/17 22:50 Lactic Acid 2.10 mmol/L (0.7-2.0) H* 02/01/17 08:33 Calcium 9.2 mg/dL (8.4-10.2) 01/31/17 22:50 Total Bilirubin 0.80 mg/dL (0.1-1.2) 02/01/17 12:35 Direct Bilirubin 0.2 mg/dL (0-0.2) 02/01/17 12:35 Indirect Bilirubin 0.6 mg/dL 02/01/17 12:35 AST 235 units/L (5-40) H 02/01/17 12:35 ALT 150 units/L (7-56) H 02/01/17 12:35 Alkaline Phosphatase 66 units/L (35-129) 02/01/17 12:35 Ammonia 64.0 umol/L (25-60) H 02/01/17 08:33 Total Protein 9.2 g/dL (6.3-8.2) H 02/01/17 12:35 Albumin 2.9 g/dL (3.9-5) L 02/01/17 12:35 Albumin/Globulin Ratio 0.5 % 02/01/17 12:35 Urine Color [place] (Yellow) 01/31/17 21:12 Urine Turbidity Clear (Clear) 01/31/17 21:12 Urine pH 5.0 (5.0-7.0) 01/31/17 21:12 Ur Specific [place] 1.019 (1.003-1.030) 01/31/17 21:12 Urine Protein 100 mg/dl mg/dL (Negative) 01/31/17 21:12 Urine Glucose (UA) Neg mg/dL (Negative) 01/31/17 21:12 Urine Ketones Neg mg/dL (Negative) 01/31/17 21:12 Urine Blood Sm (Negative) 01/31/17 21:12 Urine Nitrite Neg (Negative) 01/31/17 21:12 Urine Bilirubin Neg (Negative) 01/31/17 21:12 Urine Urobilinogen 2.0 mg/dL (<2.0) 01/31/17 21:12 Ur Leukocyte Esterase Lg (Negative) 01/31/17 21:12 Urine WBC (Auto) 88.0 /HPF (0.0-6.0) H 01/31/17 21:12 Urine RBC (Auto) 15.0 /HPF (0.0-6.0) 01/31/17 21:12 Urine Bacteria (Auto) 2+ /HPF (Negative) 01/31/17 21:12 Urine Mucus Few /HPF 01/31/17 21:12 Blood Type O POSITIVE 02/01/17 02:00 Antibody Screen Negative 02/01/17 02:00 - Imaging and Cardiology Chest x-ray: image reviewed (no acute pathology) CT Scan - head: image reviewed (no acute pathology, chronic changes noted.)
[2017-02-01] MEDS: KEPPRA 1,500 MG in NACL 0.9% 100 ML IV SCH ×2 (17:00→22:39)
[2017-02-01] MEDS: PEPCID IV SCH ×2 (18:44→22:39)
--- NOTE | 2017-02-01 18:59 | Ultrasound Report ---
FINAL REPORT EXAM: US ABDOMEN COMPLETE HISTORY: Transaminitis, TECHNIQUE: Ultrasound abdomen without contrast PRIORS: None. FINDINGS: Mildly increased echogenicity within the liver may reflect fatty infiltration No focal parenchymal abnormality seen in the visualized portion of the liver Common bile duct is within normal limits for patient's age 0.6 centimeters There is increased renal echogenicity bilaterally which likely reflects underlying medical renal disease. No evidence for hydronephrosis. There are shadowing echogenic foci seen within the lumen of the gallbladder. Gallbladder wall thickness is within normal limits 0.19 centimeters. No pericholecystic fluid identified IMPRESSION: Mild fatty infiltration of the liver Cholelithiasis. No sonographic evidence for acute cholecystitis Increased renal echogenicity likely reflects underlying medical renal disease
[2017-02-01] MEDS: VANCOMYCIN/NS 1 GM/250 ML 1 GM/250 ML BAG IV SCH (20:29)
[2017-02-01] MEDS ORDERED: SENOKOT FEEDTUBE SCH (22:00)
[2017-02-01] MEDS ORDERED: VANCOMYCIN 750 MG in NACL 0.9% 250ML 250 ML IV SCH (22:00)
[2017-02-02] MEDS: NACL 0.9% 1000 ML 1,000 ML IV SCH ×2 (03:25→17:57)
[2017-02-02] MEDS: VANCOMYCIN/NS 1 GM/250 ML 1 GM/250 ML BAG IV SCH ×2 (06:09→17:56)
[2017-02-02] MEDS: DepaKENE Liq FEEDTUBE SCH ×3 (06:11→22:52)
[2017-02-02 07:42] LABS: Alanine Aminotransferase 154 units/L (7-56); Albumin/Globulin Ratio 0.5 %; Alkaline Phosphatase 59 units/L (35-129); Anion Gap 17 mmol/L; BUN/Creatinine Ratio 82; Blood Urea Nitrogen 41 mg/dL (9-20); Calcium 8.7 mg/dL (8.4-10.2); Carbon Dioxide 25 mmol/L (22-30); Chloride 118.6 mmol/L (98-107); Glucose 90 mg/dL (75-100); Sodium 157 mmol/L (137-145); Total Protein 8.8 g/dL (6.3-8.2)
[2017-02-02 08:01] LABS: Hematocrit 42.9 % (35.5-45.6); Hemoglobin 13.4 gm/dl (11.8-15.2); Mean Corpuscular HGB Conc 31 % (32-34); Mean Corpuscular Volume 78 fl (84-94); Red Blood Count 5.49 M/mm3 (3.65-5.03); Red Cell Distribution Width 15.6 % (13.2-15.2)
[2017-02-02 08:02] LABS: Mean Corpuscular Hemoglobin 25 pg (28-32)
[2017-02-02 08:46] LABS: Platelet Count 112 K/mm3 (140-440)
[2017-02-02] MEDS: FERROUS SULFATE FEEDTUBE SCH (09:36)
[2017-02-02] MEDS: PEPCID IV SCH ×2 (09:37→22:51)
--- NOTE | 2017-02-02 09:37 | Progress Note ---
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 Pt unable to provide history due to stupor, and confusion. Pt history taked from ED staff, and medical record, as well as SNF staff. As per staff, the patient was found to have fever, and coffee-ground emesis today. EMS notified, and patient transported to [facility] for evaluation. EMS reports high fever but non is documented on arrival to the hospital, His PEG tube was clamped in the ER and appears possibly disloged. P Sepsis- Possible secondary to acute cystits-POA Acute Cystitis Chronic Metabolic Encephalopathy Hypernatremia HIV infection Seizure Disorder Chronic immobility due to fraility. Sacral Pressure Ulcer stage 1 Plan: * Continue supportive care * GI evaluation for PEG tube eval. Per staff non functional * change fluids to D5W * Monitor H/H appears stable * Repeat PLT normalized * DVT/GI prophy * No family at bedside * Passive range of motion * Wound care eval and treat * Pressure prevention strategy Hospitalist Physical - Constitutional Vitals: Temp Pulse Resp BP Pulse Ox 98.9 F 62 18 110/69 100 02/02/17 08:23 02/02/17 07:00 02/02/17 08:23 02/02/17 08:23 02/01/17 21:39 General appearance: Present: mild distress, cachectic Results - Labs CBC & Chem 7: 02/02/17 06:38 02/02/17 06:38 Labs: Laboratory Last Values WBC 8.0 K/mm3 (4.5-11.0) 02/02/17 06:38 RBC 5.49 M/mm3 (3.65-5.03) H 02/02/17 06:38 Hgb 13.4 gm/dl (11.8-15.2) 02/02/17 06:38 Hct 42.9 % (35.5-45.6) 02/02/17 06:38 MCV 78 fl (84-94) L 02/02/17 06:38 MCH 25 pg (28-32) L 02/02/17 06:38 MCHC 31 % (32-34) L 02/02/17 06:38 RDW 15.6 % (13.2-15.2) H 02/02/17 06:38 Plt Count 112 K/mm3 (140-440) L 02/02/17 06:38 [place] % (Auto) Stylist Assistant 02/01/17 12:35 Lymph # Stylist Assistant 01/31/17 20:35 Add Manual Diff Complete 02/01/17 12:35 Total Counted 100 02/01/17 12:35 Seg Neutrophils % Stylist Assistant 01/31/17 20:35 Seg Neuts % (Manual) 42.0 % (40.0-70.0) 02/01/17 12:35 Band Neutrophils % 4.0 % 02/01/17 12:35 Lymphocytes % (Manual) 36.0 % (13.4-35.0) H 02/01/17 12:35 Reactive Lymphs % (Man) 0 % 02/01/17 12:35 Monocytes % (Manual) 18.0 % (0.0-7.3) H 02/01/17 12:35 Eosinophils % (Manual) 0 % (0.0-4.3) 02/01/17 12:35 Basophils % (Manual) 0 % (0.0-1.8) 02/01/17 12:35 Metamyelocytes % 0 % 02/01/17 12:35 Myelocytes % 0 % 02/01/17 12:35 Promyelocytes % 0 % 02/01/17 12:35 Blast Cells % 0 % 02/01/17 12:35 Nucleated RBC % Not Reportable 02/01/17 12:35 Seg Neutrophils # Man 3.4 K/mm3 (1.8-7.7) 02/01/17 12:35 Band Neutrophils # 0.3 K/mm3 02/01/17 12:35 Lymphocytes # (Manual) 3.0 K/mm3 (1.2-5.4) 02/01/17 12:35 Abs React Lymphs (Man) 0.0 K/mm3 02/01/17 12:35 Monocytes # (Manual) 1.5 K/mm3 (0.0-0.8) H 02/01/17 12:35 Eosinophils # (Manual) 0.0 K/mm3 (0.0-0.4) 02/01/17 12:35 Basophils # (Manual) 0.0 K/mm3 (0.0-0.1) 02/01/17 12:35 Metamyelocytes # 0.0 K/mm3 02/01/17 12:35 Myelocytes # 0.0 K/mm3 02/01/17 12:35 Promyelocytes # 0.0 K/mm3 02/01/17 12:35 Blast Cells # 0.0 K/mm3 02/01/17 12:35 WBC Morphology Not Reportable 02/01/17 12:35 Hypersegmented Neuts Not Reportable 02/01/17 12:35 Hyposegmented Neuts Not Reportable 02/01/17 12:35 Hypogranular Neuts Not Reportable 02/01/17 12:35 Smudge Cells Not Reportable 02/01/17 12:35 Toxic Granulation Not Reportable 02/01/17 12:35 Toxic Vacuolation Not Reportable 02/01/17 12:35 Dohle Bodies Not Reportable 02/01/17 12:35 Pelger-Huet Anomaly Not Reportable 02/01/17 12:35 Inessa Rods Not Reportable 02/01/17 12:35 Platelet Estimate Consistent w auto 02/01/17 12:35 Clumped Platelets Not Reportable 02/01/17 12:35 Plt Clumps, EDTA Not Reportable 02/01/17 12:35 Large Platelets Not Reportable 02/01/17 12:35 Giant Platelets Not Reportable 02/01/17 12:35 Platelet Satelliting Not Reportable 02/01/17 12:35 Plt Morphology Comment Not Reportable 02/01/17 12:35 RBC Morphology Not Reportable 02/01/17 12:35 Dimorphic RBCs Not Reportable 02/01/17 12:35 Polychromasia Not Reportable 02/01/17 12:35 Hypochromasia Not Reportable 02/01/17 12:35 Poikilocytosis Not Reportable 02/01/17 12:35 Anisocytosis Rare 02/01/17 12:35 Microcytosis Not Reportable 02/01/17 12:35 Macrocytosis Not Reportable 02/01/17 12:35 Spherocytes Not Reportable 02/01/17 12:35 Pappenheimer Bodies Not Reportable 02/01/17 12:35 Sickle Cells Not Reportable 02/01/17 12:35 Target Cells Rare 02/01/17 12:35 Tear Drop Cells Not Reportable 02/01/17 12:35 Ovalocytes Not Reportable 02/01/17 12:35 Helmet Cells Not Reportable 02/01/17 12:35 [place] Bodies Not Reportable 02/01/17 12:35 [place] Rings Not Reportable 02/01/17 12:35 [place] Cells Not Reportable 02/01/17 12:35 Bite Cells Not Reportable 02/01/17 12:35 Crenated Cell Not Reportable 02/01/17 12:35 Elliptocytes Not Reportable 02/01/17 12:35 Acanthocytes (Spur) Not Reportable 02/01/17 12:35 Rouleaux Not Reportable 02/01/17 12:35 Hemoglobin C Crystals Not Reportable 02/01/17 12:35 Schistocytes Not Reportable 02/01/17 12:35 Malaria parasites Not Reportable 02/01/17 12:35 Vamshi Bodies Not Reportable 02/01/17 12:35 Hem Pathologist Commnt No 02/01/17 12:35 Sodium 157 mmol/L (137-145) H D 02/02/17 06:38 Potassium 4.0 mmol/L (3.6-5.0) 02/02/17 06:38 Chloride 118.6 mmol/L (98-107) H 02/02/17 06:38 Carbon Dioxide 25 mmol/L (22-30) 02/02/17 06:38 Anion Gap 17 mmol/L 02/02/17 06:38 BUN 41 mg/dL (9-20) H 02/02/17 06:38 Creatinine 0.5 mg/dL (0.8-1.5) L 02/02/17 06:38 Estimated GFR > 60 ml/min 02/02/17 06:38 BUN/Creatinine Ratio 82 % 02/02/17 06:38 Glucose 90 mg/dL (75-100) 02/02/17 06:38 Lactic Acid 1.80 mmol/L (0.7-2.0) 02/01/17 16:42 Calcium 8.7 mg/dL (8.4-10.2) 02/02/17 06:38 Total Bilirubin 0.70 mg/dL (0.1-1.2) 02/02/17 06:38 Direct Bilirubin 0.2 mg/dL (0-0.2) 02/01/17 12:35 Indirect Bilirubin 0.6 mg/dL 02/01/17 12:35 AST 237 units/L (5-40) H 02/02/17 06:38 ALT 154 units/L (7-56) H 02/02/17 06:38 Alkaline Phosphatase 59 units/L (35-129) 02/02/17 06:38 Ammonia 64.0 umol/L (25-60) H 02/01/17 08:33 Total Protein 8.8 g/dL (6.3-8.2) H 02/02/17 06:38 Albumin 3.0 g/dL (3.9-5) L 02/02/17 06:38 Albumin/Globulin Ratio 0.5 % 02/02/17 06:38 Urine Color [place] (Yellow) 01/31/17 21:12 Urine Turbidity Clear (Clear) 01/31/17 21:12 Urine pH 5.0 (5.0-7.0) 01/31/17 21:12 Ur Specific [place] 1.019 (1.003-1.030) 01/31/17 21:12 Urine Protein 100 mg/dl mg/dL (Negative) 01/31/17 21:12 Urine Glucose (UA) Neg mg/dL (Negative) 01/31/17 21:12 Urine Ketones Neg mg/dL (Negative) 01/31/17 21:12 Urine Blood Sm (Negative) 01/31/17 21:12 Urine Nitrite Neg (Negative) 01/31/17 21:12 Urine Bilirubin Neg (Negative) 01/31/17 21:12 Urine Urobilinogen 2.0 mg/dL (<2.0) 01/31/17 21:12 Ur Leukocyte Esterase Lg (Negative) 01/31/17 21:12 Urine WBC (Auto) 88.0 /HPF (0.0-6.0) H 01/31/17 21:12 Urine RBC (Auto) 15.0 /HPF (0.0-6.0) 01/31/17 21:12 Urine Bacteria (Auto) 2+ /HPF (Negative) 01/31/17 21:12 Urine Mucus Few /HPF 01/31/17 21:12 Hepatitis A IgM Ab Non-reactive (NonReactive) 02/01/17 16:42 Hep Bs Antigen Non-reactive (Negative) 02/01/17 16:42 Hep B Core IgM Ab Non-reactive (NonReactive) 02/01/17 16:42 Hepatitis C Antibody Reactive (NonReactive) A 02/01/17 16:42 Blood Type O POSITIVE 02/01/17 02:00 Antibody Screen Negative 02/01/17 02:00
[2017-02-02] MEDS: NACL 0.9% IV SCH ×2 (09:38→09:56)
[2017-02-02] MEDS: ROCEPHIN IV SCH ×2 (09:38→09:56)
[2017-02-02] MEDS: KEPPRA 1,500 MG in NACL 0.9% 100 ML IV SCH ×2 (09:55→22:50)
[2017-02-02] MEDS: COLACE FEEDTUBE SCH (10:06)
--- NOTE | 2017-02-02 10:43 | Gastroenterology Consultation ---
History of Present Illness - Reason for Consult Consult date: 02/02/17 Malfunctioning PEG tube Requesting physician: KEVIN ANAYA - History of Present Illness We are consulted for a malfunctioning PEG tube. The patient was brought to the ER for CGE/possible GI bleed, but he has had no gross bleeding or emesis here. He is on iron at his facility for unknown reason (hct WNL) and eliquis for unk reason (apparently hospitalized at [facility] several months ago). He has had no gross bleeding here, but his feeding tube (PEG per Xray) is noted to be dysfunctional with a torn major port, that is actively leaking. There is no reported trauma to the PEG. The patient was tolerating tube feeds at the facility per the notes in the chart, but was on PRN laxatives, and admit KUB shows significant constipation. He is somewhat alert/garbled speech but can follow simple commands and moves his extremeties well. Past History Past Medical History: GERD, hepatitis (HCV (unclear prior treatment)), stroke Past Surgical History: Other (G tube placement) Social history: single. denies: smoking, alcohol abuse, prescription drug abuse Family history: hypertension Medications and Allergies Allergies Allergy/AdvReac Type Severity Reaction Status Date / Time No Known Allergies Allergy Unverified 01/31/17 20:00 Home Medications Medication Instructions Recorded Confirmed Last Taken Type Acetaminophen 650 mg FEEDTUBE Q6HR PRN 02/01/17 02/01/17 Unknown History Coreg 12.5 mg FEEDTUBE Q12HR 02/01/17 02/01/17 Unknown History Docusate Sodium 100 mg FEEDTUBE BID 02/01/17 02/01/17 Unknown History Famotidine [Pepcid] 20 mg FEEDTUBE Q12HR 02/01/17 02/01/17 Unknown History Ferrous Sulfate [Ferosul Oral Liq] 220 mg FEEDTUBE QDAY 02/01/17 02/01/17 Unknown History Glycerin 1 suppositor ID QDAY PRN 02/01/17 02/01/17 Unknown History Keppra ORAL LIQ 1,500 mg FEEDTUBE Q12HR 02/01/17 02/01/17 Unknown History Senna S Tablet 17.2 mg FEEDTUBE QHS 02/01/17 02/01/17 Unknown History VALPROIC ACID Liq 125 mg FEEDTUBE Q8HR 02/01/17 02/01/17 Unknown History traMADol 100 mg FEEDTUBE Q8HR 02/01/17 02/01/17 01/31/17 14:00 History Active Meds: Active Medications Acetaminophen (Tylenol) 650 mg FEEDTUBE Q6H PRN PRN Reason: Fever Albuterol (Proventil) 2.5 mg IH Q4HRT PRN PRN Reason: Shortness Of Breath Bisacodyl (Dulcolax) 10 mg ID QDAY PRN PRN Reason: Constipation unrelieved by [facility] Docusate Sodium (Colace) 100 mg FEEDTUBE BID [facility] Last Admin: 02/02/17 10:06 Dose: Not Given Famotidine (Pepcid) 20 mg IV BID [facility] Last Admin: 02/02/17 09:37 Dose: 20 mg Ferrous Sulfate (Ferrous Sulfate) 220 mg FEEDTUBE QDAY [facility] Last Admin: 02/02/17 09:36 Dose: Not Given Glycerin (Glycerin Adult 2 Gm) 1 supp ID QDAY PRN PRN Reason: Constipation Ceftriaxone Sodium 2 gm/ (Sodium Chloride) 20 mls @ 2 mls/min IV Q24HR [facility] Last Admin: 02/02/17 09:56 Dose: 2 mls/min Vancomycin HCl (Vancomycin/Ns 1 Gm/250 Ml) 1 gm in 250 mls @ 166.667 mls/hr IV Q12H [facility] Last Admin: 02/02/17 06:09 Dose: 166.667 mls/hr Levetiracetam 1,500 mg/ Sodium (Chloride) 115 mls @ 400 mls/hr IV Q12HR [facility] Last Admin: 02/02/17 09:55 Dose: 400 mls/hr Sodium Chloride (Nacl 0.9% 1000 Ml) 1,000 mls @ 125 mls/hr IV DIRECT [facility] Last Admin: 02/02/17 03:25 Dose: 125 mls/hr Dextrose (D5w) 1,000 mls @ 75 mls/hr IV DIRECT SUE Magnesium Hydroxide (Milk Of Magnesia) 30 ml PO Q4H PRN PRN Reason: Constipation Ondansetron HCl (Zofran) 4 mg IV Q8H PRN PRN Reason: N/V unrelieved by Mya Gottlieb (Senokot) 17.2 mg FEEDTUBE QHS [facility] Last Admin: 02/01/17 22:40 Dose: Not Given Tramadol HCl (Ultram) 100 mg FEEDTUBE Q8H PRN PRN Reason: Pain, Moderate (4-6) Valproic Acid (Depakene Liq) 125 mg FEEDTUBE Q8HR [facility] Last Admin: 02/02/17 06:11 Dose: Not Given Vancomycin HCl (Vancomycin Pharmacy To Dose) 1 each IV PKCONSULT SUE PRN Reason: Protocol Review of Systems - Review of Systems ROS unobtainable: due to mental status Exam - Constitutional Vital Signs: Temp Pulse Resp BP Pulse Ox 98.9 F 62 18 110/69 100 02/02/17 08:23 02/02/17 07:00 02/02/17 08:23 02/02/17 08:23 02/02/17 10:00 General appearance: no acute distress, disheveled - EENT Eyes: PERRL, EOM intact ENT: hearing intact, poor dentition, no thrush - Neck Neck: supple, normal ROM - Respiratory Respiratory effort: normal Respiratory: bilateral: CTA - Cardiovascular Rhythm: regular Heart Sounds: Present: S1 & S2 Extremities: no ischemia, abnormal (mildly contracted upper and lower extremeties; can straighten with resistance) - Gastrointestinal General gastrointestinal: Present: soft, non-tender, non-distended, other ( Prior 16Fr PEG balloon deflated and removed (was only in at 3cm); new PEG (16Fr ) was inserted and balloon inflated to 5ml; bumper fixed at 4cm from the skin; good flush/flow with water) - Neurologic Neurological: oriented to person, other (Able to move B UE on command; unable to straigten legs but moves spontaneously) - Labs CBC & Chem 7: 02/02/17 06:38 02/02/17 06:38 Lab Results: Laboratory Results - last 24 hr 02/01/17 02/01/17 02/01/17 12:35 12:35 16:42 WBC 8.2 RBC 5.91 H Hgb 14.2 Hct 46.0 H MCV 78 L MCH 24 L MCHC 31 L RDW 15.7 H Plt Count 124 L D [place] % (Auto) Electric Razor Assembler Add Manual Diff Complete Total Counted 100 Seg Neuts % (Manual) 42.0 Band Neutrophils % 4.0 Lymphocytes % (Manual) 36.0 H Reactive Lymphs % (Man) 0 Monocytes % (Manual) 18.0 H Eosinophils % (Manual) 0 Basophils % (Manual) 0 Metamyelocytes % 0 Myelocytes % 0 Promyelocytes % 0 Blast Cells % 0 Nucleated RBC % Not Reportable Seg Neutrophils # Man 3.4 Band Neutrophils # 0.3 Lymphocytes # (Manual) 3.0 Abs React Lymphs (Man) 0.0 Monocytes # (Manual) 1.5 H Eosinophils # (Manual) 0.0 Basophils # (Manual) 0.0 Metamyelocytes # 0.0 Myelocytes # 0.0 Promyelocytes # 0.0 Blast Cells # 0.0 WBC Morphology Not Reportable Hypersegmented Neuts Not Reportable Hyposegmented Neuts Not Reportable Hypogranular Neuts Not Reportable Smudge Cells Not Reportable Toxic Granulation Not Reportable Toxic Vacuolation Not Reportable Dohle Bodies Not Reportable Pelger-Huet Anomaly Not Reportable Inessa Rods Not Reportable Platelet Estimate Consistent w auto Clumped Platelets Not Reportable Plt Clumps, EDTA Not Reportable Large Platelets Not Reportable Giant Platelets Not Reportable Platelet Satelliting Not Reportable Plt Morphology Comment Not Reportable RBC Morphology Not Reportable Dimorphic RBCs Not Reportable Polychromasia Not Reportable Hypochromasia Not Reportable Poikilocytosis Not Reportable Anisocytosis Rare Microcytosis Not Reportable Macrocytosis Not Reportable Spherocytes Not Reportable Pappenheimer Bodies Not Reportable Sickle Cells Not Reportable Target Cells Rare Tear Drop Cells Not Reportable Ovalocytes Not Reportable Helmet Cells Not Reportable Carmona-August Bodies Not Reportable [place] Rings Not Reportable Annmarie Cells Not Reportable Bite Cells Not Reportable Crenated Cell Not Reportable Elliptocytes Not Reportable Acanthocytes (Spur) Not Reportable Rouleaux Not Reportable Hemoglobin C Crystals Not Reportable Schistocytes Not Reportable Malaria parasites Not Reportable Vamshi Bodies Not Reportable Hem Pathologist Commnt No Sodium Potassium Chloride Carbon Dioxide Anion Gap BUN Creatinine Estimated GFR BUN/Creatinine Ratio Glucose Lactic Acid Calcium Total Bilirubin 0.80 Direct Bilirubin 0.2 Indirect Bilirubin 0.6 AST 235 H ALT 150 H Alkaline Phosphatase 66 Total Protein 9.2 H Albumin 2.9 L Albumin/Globulin Ratio 0.5 Hepatitis A IgM Ab Non-reactive Hep Bs Antigen Non-reactive Hep B Core IgM Ab Non-reactive Hepatitis C Antibody Reactive A 02/01/17 02/02/17 02/02/17 16:42 06:38 06:38 WBC 8.0 RBC 5.49 H Hgb 13.4 Hct 42.9 MCV 78 L MCH 25 L MCHC 31 L RDW 15.6 H Plt Count 112 L [place] % (Auto) Add Manual Diff Total Counted Seg Neuts % (Manual) Band Neutrophils % Lymphocytes % (Manual) Reactive Lymphs % (Man) Monocytes % (Manual) Eosinophils % (Manual) Basophils % (Manual) Metamyelocytes % Myelocytes % Promyelocytes % Blast Cells % Nucleated RBC % Seg Neutrophils # Man Band Neutrophils # Lymphocytes # (Manual) Abs React Lymphs (Man) Monocytes # (Manual) Eosinophils # (Manual) Basophils # (Manual) Metamyelocytes # Myelocytes # Promyelocytes # Blast Cells # WBC Morphology Hypersegmented Neuts Hyposegmented Neuts Hypogranular Neuts Smudge Cells Toxic Granulation Toxic Vacuolation Dohle Bodies Pelger-Huet Anomaly Inessa Rods Platelet Estimate Clumped Platelets Plt Clumps, EDTA Large Platelets Giant Platelets Platelet Satelliting Plt Morphology Comment RBC Morphology Dimorphic RBCs Polychromasia Hypochromasia Poikilocytosis Anisocytosis Microcytosis Macrocytosis Spherocytes Pappenheimer Bodies Sickle Cells Target Cells Tear Drop Cells Ovalocytes Helmet Cells Carmona-August Bodies [place] Rings Annmarie Cells Bite Cells Crenated Cell Elliptocytes Acanthocytes (Spur) Rouleaux Hemoglobin C Crystals Schistocytes Malaria parasites Vamshi Bodies Hem Pathologist Commnt Sodium 157 H D Potassium 4.0 Chloride 118.6 H Carbon Dioxide 25 Anion Gap 17 BUN 41 H Creatinine 0.5 L Estimated GFR > 60 BUN/Creatinine Ratio 82 Glucose 90 Lactic Acid 1.80 Calcium 8.7 Total Bilirubin 0.70 Direct Bilirubin Indirect Bilirubin AST 237 H ALT 154 H Alkaline Phosphatase 59 Total Protein 8.8 H Albumin 3.0 L Albumin/Globulin Ratio 0.5 Hepatitis A IgM Ab Hep Bs Antigen Hep B Core IgM Ab Hepatitis C Antibody Assessment and Plan - Patient Problems (1) PEG tube malfunction Current Visit: Yes Status: Acute Plan to address problem: - PEG tube replaced as noted above (major port broken and leaking). - Will check G-tube study as not sure how long it has been malfunctional/ partially dislodged. - If G tube study OK, then may use immediately. (2) Constipation Current Visit: Yes Status: Acute Plan to address problem: - Noted on admit KUB, and likely due to BID iron; also likely cause of coffee ground emesis. - Will start daily lactulose, and give 2 dose of MOM today. - Will d/c iron, since hct WNL and no gross bleeding, and start MVI daily.
[2017-02-02] MEDS ORDERED: CEPHULAC PO PRN (11:08)
[2017-02-02] MEDS: CEPHULAC PO SCH ×2 (13:27→16:39)
[2017-02-02] MEDS: MILK OF MAGNESIA PO SCH ×2 (13:27→22:53)
--- NOTE | 2017-02-02 13:38 | XRay Report ---
G-TUBE STUDY History: Confirm PEG tube placement. Findings: Nurse Rn Bsn film of the abdomen demonstrates a PEG tube in the left upper quadrant. A second view of the abdomen was obtained following injection of oral contrast through the PEG tube. Contrast outlines a normal-appearing stomach and multiple proximal small bowel loops. There is no evidence for obstruction or extravasation. Impression: The PEG tube terminates in the stomach.
--- NOTE | 2017-02-02 16:25 | Progress Note ---
Assessment and Plan Assessment and plan: Patient is a 61 YO Male Penitentiary Resident at [place] with HIV, Severe Malnutrition, Seizure Disorder, Dementia presents to ED for evaluation for fever and coffee ground emesis. Pt unable to provide history due to stupor, and confusion. Pt history taked from ED staff, and medical record, as well as SNF staff. As per staff, the patient was found to have fever, and coffee-ground emesis today. EMS notified, and patient transported to [facility] for evaluation. EMS reports high fever but non is documented on arrival to the hospital, His PEG tube was clamped in the ER and appears possibly disloged. Sepsis- Possible secondary to acute cystits-POA Acute Cystitis Chronic Metabolic Encephalopathy Hypernatremia HCV Seizure Disorder Fatty Liver Chronic immobility due to frailty. Sacral Pressure Ulcer stage 1 Plan: * Continue supportive care * GI appreciated, GI replaced Peg. * change fluids to D5W * Monitor H/H appears stable * Repeat PLT normalized * No family at bedside * Passive range of motion * Wound care eval and treat * Pressure prevention strategy History Interval history: Patient seen and examined, in no acute distress, but with confusion, appears to be baseline. Hospitalist Physical - Physical exam Narrative exam: VITAL SIGNS: Reviewed. GENERAL: The patient appeared chronically ill. Vital signs as documented. HEAD: No signs of head trauma. EYES: Pupils are equal. Extraocular motions intact. EARS: Hearing grossly intact. MOUTH: Right facial droop.. NECK: No adenopathy, no JVD. CHEST: Chest with clear breath sounds bilaterally. No wheezes, rales, or rhonchi. CARDIAC: Regular rate and rhythm. S1 and S2, without murmurs, gallops, or rubs. VASCULAR: No Edema. Peripheral pulses normal and equal in all extremities. ABDOMEN: Soft, without detectable tenderness. Scaphoid, PEG tube in place No sign of distention. No rebound or guarding, and no masses palpated. Bowel Sounds normal. MUSCULOSKELETAL: Contracted. Extremities without clubbing, cyanosis or edema. NEUROLOGIC EXAM: Awake oriented to person only. Follow some commands PSYCHIATRIC: Mood normal. SKIN: Left hip ulcer and stage I pressure ulcer. - Constitutional Vitals: Temp Pulse Resp BP Pulse Ox 99.3 F 104 H 18 112/81 100 02/02/17 16:14 02/02/17 16:19 02/02/17 16:14 02/02/17 16:14 02/02/17 10:00 General appearance: Present: mild distress, cachectic Results - Labs CBC & Chem 7: 02/02/17 06:38 02/02/17 15:04 Labs: Laboratory Last Values WBC 8.0 K/mm3 (4.5-11.0) 02/02/17 06:38 RBC 5.49 M/mm3 (3.65-5.03) H 02/02/17 06:38 Hgb 13.4 gm/dl (11.8-15.2) 02/02/17 06:38 Hct 42.9 % (35.5-45.6) 02/02/17 06:38 MCV 78 fl (84-94) L 02/02/17 06:38 MCH 25 pg (28-32) L 02/02/17 06:38 MCHC 31 % (32-34) L 02/02/17 06:38 RDW 15.6 % (13.2-15.2) H 02/02/17 06:38 Plt Count 112 K/mm3 (140-440) L 02/02/17 06:38 [place] % (Auto) Provider Education Specialist 02/01/17 12:35 Lymph # Provider Education Specialist 01/31/17 20:35 Add Manual Diff Complete 02/01/17 12:35 Total Counted 100 02/01/17 12:35 Seg Neutrophils % Provider Education Specialist 01/31/17 20:35 Seg Neuts % (Manual) 42.0 % (40.0-70.0) 02/01/17 12:35 Band Neutrophils % 4.0 % 02/01/17 12:35 Lymphocytes % (Manual) 36.0 % (13.4-35.0) H 02/01/17 12:35 Reactive Lymphs % (Man) 0 % 02/01/17 12:35 Monocytes % (Manual) 18.0 % (0.0-7.3) H 02/01/17 12:35 Eosinophils % (Manual) 0 % (0.0-4.3) 02/01/17 12:35 Basophils % (Manual) 0 % (0.0-1.8) 02/01/17 12:35 Metamyelocytes % 0 % 02/01/17 12:35 Myelocytes % 0 % 02/01/17 12:35 Promyelocytes % 0 % 02/01/17 12:35 Blast Cells % 0 % 02/01/17 12:35 Nucleated RBC % Not Reportable 02/01/17 12:35 Seg Neutrophils # Man 3.4 K/mm3 (1.8-7.7) 02/01/17 12:35 Band Neutrophils # 0.3 K/mm3 02/01/17 12:35 Lymphocytes # (Manual) 3.0 K/mm3 (1.2-5.4) 02/01/17 12:35 Abs React Lymphs (Man) 0.0 K/mm3 02/01/17 12:35 Monocytes # (Manual) 1.5 K/mm3 (0.0-0.8) H 02/01/17 12:35 Eosinophils # (Manual) 0.0 K/mm3 (0.0-0.4) 02/01/17 12:35 Basophils # (Manual) 0.0 K/mm3 (0.0-0.1) 02/01/17 12:35 Metamyelocytes # 0.0 K/mm3 02/01/17 12:35 Myelocytes # 0.0 K/mm3 02/01/17 12:35 Promyelocytes # 0.0 K/mm3 02/01/17 12:35 Blast Cells # 0.0 K/mm3 02/01/17 12:35 WBC Morphology Not Reportable 02/01/17 12:35 Hypersegmented Neuts Not Reportable 02/01/17 12:35 Hyposegmented Neuts Not Reportable 02/01/17 12:35 Hypogranular Neuts Not Reportable 02/01/17 12:35 Smudge Cells Not Reportable 02/01/17 12:35 Toxic Granulation Not Reportable 02/01/17 12:35 Toxic Vacuolation Not Reportable 02/01/17 12:35 Dohle Bodies Not Reportable 02/01/17 12:35 Pelger-Huet Anomaly Not Reportable 02/01/17 12:35 Inessa Rods Not Reportable 02/01/17 12:35 Platelet Estimate Consistent w auto 02/01/17 12:35 Clumped Platelets Not Reportable 02/01/17 12:35 Plt Clumps, EDTA Not Reportable 02/01/17 12:35 Large Platelets Not Reportable 02/01/17 12:35 Giant Platelets Not Reportable 02/01/17 12:35 Platelet Satelliting Not Reportable 02/01/17 12:35 Plt Morphology Comment Not Reportable 02/01/17 12:35 RBC Morphology Not Reportable 02/01/17 12:35 Dimorphic RBCs Not Reportable 02/01/17 12:35 Polychromasia Not Reportable 02/01/17 12:35 Hypochromasia Not Reportable 02/01/17 12:35 Poikilocytosis Not Reportable 02/01/17 12:35 Anisocytosis Rare 02/01/17 12:35 Microcytosis Not Reportable 02/01/17 12:35 Macrocytosis Not Reportable 02/01/17 12:35 Spherocytes Not Reportable 02/01/17 12:35 Pappenheimer Bodies Not Reportable 02/01/17 12:35 Sickle Cells Not Reportable 02/01/17 12:35 Target Cells Rare 02/01/17 12:35 Tear Drop Cells Not Reportable 02/01/17 12:35 Ovalocytes Not Reportable 02/01/17 12:35 Helmet Cells Not Reportable 02/01/17 12:35 Carmona-Orwin Bodies Not Reportable 02/01/17 12:35 [place] Rings Not Reportable 02/01/17 12:35 [place] Cells Not Reportable 02/01/17 12:35 Bite Cells Not Reportable 02/01/17 12:35 Crenated Cell Not Reportable 02/01/17 12:35 Elliptocytes Not Reportable 02/01/17 12:35 Acanthocytes (Spur) Not Reportable 02/01/17 12:35 Rouleaux Not Reportable 02/01/17 12:35 Hemoglobin C Crystals Not Reportable 02/01/17 12:35 Schistocytes Not Reportable 02/01/17 12:35 Malaria parasites Not Reportable 02/01/17 12:35 Vamshi Bodies Not Reportable 02/01/17 12:35 Hem Pathologist Commnt No 02/01/17 12:35 Sodium 157 mmol/L (137-145) H D 02/02/17 06:38 Potassium 4.0 mmol/L (3.6-5.0) 02/02/17 06:38 Chloride 118.6 mmol/L (98-107) H 02/02/17 06:38 Carbon Dioxide 25 mmol/L (22-30) 02/02/17 06:38 Anion Gap 17 mmol/L 02/02/17 06:38 BUN 41 mg/dL (9-20) H 02/02/17 06:38 Creatinine 0.5 mg/dL (0.8-1.5) L 02/02/17 06:38 Estimated GFR > 60 ml/min 02/02/17 06:38 BUN/Creatinine Ratio 82 % 02/02/17 06:38 Glucose 90 mg/dL (75-100) 02/02/17 06:38 Lactic Acid 1.80 mmol/L (0.7-2.0) 02/01/17 16:42 Calcium 8.7 mg/dL (8.4-10.2) 02/02/17 06:38 Total Bilirubin 0.70 mg/dL (0.1-1.2) 02/02/17 06:38 Direct Bilirubin 0.2 mg/dL (0-0.2) 02/01/17 12:35 Indirect Bilirubin 0.6 mg/dL 02/01/17 12:35 AST 237 units/L (5-40) H 02/02/17 06:38 ALT 154 units/L (7-56) H 02/02/17 06:38 Alkaline Phosphatase 59 units/L (35-129) 02/02/17 06:38 Ammonia 64.0 umol/L (25-60) H 02/01/17 08:33 Total Protein 8.8 g/dL (6.3-8.2) H 02/02/17 06:38 Albumin 3.0 g/dL (3.9-5) L 02/02/17 06:38 Albumin/Globulin Ratio 0.5 % 02/02/17 06:38 Urine Color Kathrine (Yellow) 01/31/17 21:12 Urine Turbidity Clear (Clear) 01/31/17 21:12 Urine pH 5.0 (5.0-7.0) 01/31/17 21:12 Ur Specific [place] 1.019 (1.003-1.030) 01/31/17 21:12 Urine Protein 100 mg/dl mg/dL (Negative) 01/31/17 21:12 Urine Glucose (UA) Neg mg/dL (Negative) 01/31/17 21:12 Urine Ketones Neg mg/dL (Negative) 01/31/17 21:12 Urine Blood Sm (Negative) 01/31/17 21:12 Urine Nitrite Neg (Negative) 01/31/17 21:12 Urine Bilirubin Neg (Negative) 01/31/17 21:12 Urine Urobilinogen 2.0 mg/dL (<2.0) 01/31/17 21:12 Ur Leukocyte Esterase Lg (Negative) 01/31/17 21:12 Urine WBC (Auto) 88.0 /HPF (0.0-6.0) H 01/31/17 21:12 Urine RBC (Auto) 15.0 /HPF (0.0-6.0) 01/31/17 21:12 Urine Bacteria (Auto) 2+ /HPF (Negative) 01/31/17 21:12 Urine Mucus Few /HPF 01/31/17 21:12 Hepatitis A IgM Ab Non-reactive (NonReactive) 02/01/17 16:42 Hep Bs Antigen Non-reactive (Negative) 02/01/17 16:42 Hep B Core IgM Ab Non-reactive (NonReactive) 02/01/17 16:42 Hepatitis C Antibody Reactive (NonReactive) A 02/01/17 16:42 Blood Type O POSITIVE 02/01/17 02:00 Antibody Screen Negative 02/01/17 02:00
[2017-02-03] MEDS: VANCOMYCIN/NS 1 GM/250 ML 1 GM/250 ML BAG IV SCH ×2 (06:30→18:10)
[2017-02-03] MEDS: DepaKENE Liq FEEDTUBE SCH ×3 (06:32→22:10)
[2017-02-03 08:08] LABS: Anion Gap 17 mmol/L; BUN/Creatinine Ratio 48; Blood Urea Nitrogen 29 mg/dL (9-20); Calcium 8.1 mg/dL (8.4-10.2); Carbon Dioxide 20 mmol/L (22-30); Chloride 126.3 mmol/L (98-107); Glucose 83 mg/dL (75-100); Sodium 159 mmol/L (137-145)
[2017-02-03] MEDS: NACL 0.9% IV SCH (10:44)
[2017-02-03] MEDS: ROCEPHIN IV SCH (10:44)
[2017-02-03] MEDS: KEPPRA 1,500 MG in NACL 0.9% 100 ML IV SCH (10:44)
[2017-02-03] MEDS: D5W 1,000 ML IV SCH (10:45)
[2017-02-03] MEDS: CEPHULAC PO SCH (10:45)
[2017-02-03] MEDS: PEPCID FEEDTUBE SCH ×2 (10:45→22:11)
[2017-02-03 11:00] LABS: Hematocrit 38.3 % (35.5-45.6); Mean Corpuscular HGB Conc 31 % (32-34); Mean Corpuscular Volume 78 fl (84-94); Red Cell Distribution Width 15.5 % (13.2-15.2); White Blood Count 7.1 K/mm3 (4.5-11.0)
[2017-02-03 11:12] LABS: Mean Corpuscular Hemoglobin 25 pg (28-32)
[2017-02-03 12:01] LABS: Platelet Count 105 K/mm3 (140-440)
--- NOTE | 2017-02-03 18:35 | Progress Note ---
Assessment and Plan Assessment and Plan Assessment and plan: Patient is a 61 YO Male Assisted Resident at [place] with HIV, Severe Malnutrition, Seizure Disorder, Dementia presents to ED for evaluation for fever and coffee ground emesis. Pt unable to provide history due to stupor, and confusion. Pt history taked from ED staff, and medical record, as well as SNF staff. As per staff, the patient was found to have fever, and coffee-ground emesis today. EMS notified, and patient transported to [facility] for evaluation. EMS reports high fever but non is documented on arrival to the hospital, His PEG tube was clamped in the ER and appears possibly disloged. Sepsis- Possible secondary to acute cystits-POA Acute Cystitis Chronic Metabolic Encephalopathy Hypernatremia HCV Seizure Disorder Fatty Liver Chronic immobility due to frailty. Sacral Pressure Ulcer stage 1 Plan: * Continue supportive care * GI appreciated, GI replaced Peg. * change fluids to D5W * Monitor H/H appears stable * Repeat PLT normalized * No family at bedside * Passive range of motion * Wound care eval and treat * Pressure prevention strategy Subjective Date of service: 02/03/17 Principal diagnosis: Sepsis Interval history: Sx better Objective - Constitutional Vitals: Vital Signs - 12hr 02/03/17 02/03/17 02/03/17 07:51 12:26 15:21 Temperature 98.5 F 99.3 F 98.9 F Pulse Rate 94 H 85 86 Respiratory 16 18 18 Rate Blood Pressure 122/73 115/76 116/76 O2 Sat by Pulse 100 100 97 Oximetry General appearance: Present: no acute distress, well-nourished - EENT Eyes: PERRL, EOM intact ENT: hearing intact, clear oral mucosa Ears: bilateral: normal - Neck Neck: supple, normal ROM - Respiratory Respiratory effort: normal Respiratory: bilateral: CTA - Breasts Breasts: normal - Cardiovascular Rhythm: regular Heart Sounds: Present: S1 & S2. Absent: gallop, rub Extremities: pulses intact, No edema, normal color, Full ROM - Gastrointestinal General gastrointestinal: Present: soft, non-tender, non-distended, normal bowel sounds - Genitourinary Male genitourinary: normal - Integumentary Integumentary: clear, warm, dry - Musculoskeletal Musculoskeletal: 1, strength equal bilaterally - Neurologic Neurologic: moves all extremities - Psychiatric Psychiatric: memory intact, appropriate mood/affect, intact judgment & insight - Labs CBC & Chem 7: 02/03/17 10:25 02/03/17 07:26 Labs: Abnormal lab results 02/03/17 02/03/17 Range/Units 07:26 10:25 MCV 78 L (84-94) fl MCH 25 L (28-32) pg MCHC 31 L (32-34) % RDW 15.5 H (13.2-15.2) % Plt Count 105 L (140-440) K/mm3 Sodium 159 H (137-145) mmol/L Chloride 126.3 H (98-107) mmol/L Carbon Dioxide 20 L (22-30) mmol/L BUN 29 H (9-20) mg/dL Creatinine 0.6 L (0.8-1.5) mg/dL Calcium 8.1 L (8.4-10.2) mg/dL
--- NOTE | 2017-02-03 19:03 | Gastroenterology Progress Note ---
Assessment and Plan - Patient Problems (1) PEG tube malfunction Current Visit: Yes Status: Acute Plan to address problem: - PEG tube replaced as noted above (major port broken and leaking). - G-tube study unremarkable. - OK to initiate tube feeds. - Will sign off, please call if needed. (2) Constipation Current Visit: Yes Status: Acute Plan to address problem: - Noted on admit KUB, and likely due to BID iron; also likely cause of coffee ground emesis. - Will continue daily lactulose, and give 2 dose of MOM today. - Will d/c iron, since hct WNL and no gross bleeding, and start MVI daily. Subjective Date of service: 02/03/17 Principal diagnosis: Constipation, PEG tube Interval history: The patient has had multiple BMs with laxatives, and has had no further vomiting. His new PEG tube is working well for flushes and meds, and he denies abdominal pain. Objective - Constitutional Vitals: Temp Pulse Resp BP Pulse Ox 98.9 F 86 18 116/76 97 02/03/17 15:21 02/03/17 15:21 02/03/17 15:21 02/03/17 15:21 02/03/17 15:21 General appearance: no acute distress - EENT Eyes: PERRL, EOM intact - Respiratory Respiratory effort: normal Respiratory: bilateral: CTA - Cardiovascular Rhythm: regular Heart Sounds: Present: S1 & S2 - Gastrointestinal General gastrointestinal: Present: soft, non-tender, non-distended, other (PEG LUQ C/D/I without bleeding) - Labs CBC & Chem 7: 02/03/17 10:25 02/03/17 07:26 Labs: Laboratory Results - last 24 hr 02/03/17 02/03/17 07:26 10:25 WBC 7.1 RBC 4.90 Hgb 12.0 Hct 38.3 MCV 78 L MCH 25 L MCHC 31 L RDW 15.5 H Plt Count 105 L Sodium 159 H Potassium 4.0 Chloride 126.3 H Carbon Dioxide 20 L Anion Gap 17 BUN 29 H Creatinine 0.6 L Estimated GFR > 60 BUN/Creatinine Ratio 48 Glucose 83 Calcium 8.1 L
[2017-02-03] MEDS: KEPPRA FEEDTUBE SCH (22:10)
[2017-02-04] MEDS: D5W 1,000 ML IV SCH ×2 (03:13→21:43)
[2017-02-04] MEDS: DepaKENE Liq FEEDTUBE SCH ×3 (06:38→21:44)
[2017-02-04] MEDS: VANCOMYCIN/NS 1 GM/250 ML 1 GM/250 ML BAG IV SCH ×2 (06:38→19:57)
[2017-02-04] MEDS: PEPCID FEEDTUBE SCH ×2 (10:46→21:45)
[2017-02-04] MEDS: KEPPRA FEEDTUBE SCH ×2 (10:46→21:44)
[2017-02-04] MEDS: CEPHULAC PO SCH (10:46)
[2017-02-04] MEDS: ROCEPHIN IV SCH (11:06)
[2017-02-04] MEDS: NACL 0.9% IV SCH (11:06)
--- NOTE | 2017-02-04 19:48 | Progress Note ---
Assessment and Plan Assessment and plan: Patient is a 61 YO Male Shelter Resident at [place] with HIV, Dementia, Severe Malnutrition, Seizure Disorder, brought to ED for evaluation for fever and coffee ground emesis Sepsis- likely secondary to cath associated UTI; continue antibiotics and ivf Acute on chronic Metabolic Encephalopathy - treat underlying conditions Hypernatremia - hypotonic IV fluids, monitor Seizure Disorder - continue home antiepileptics Constipation - GI likely secondary to twice a day iron which can also be the cause of coffee-ground emesis; receiving lactulose PEG malfunction - PEG replaced; there GI okay to start feeding today Chronic immobility due to frailty. Sacral Pressure Ulcer stage 1 - local wound care History Interval history: s/p PEG replacement; having BM after laxatives Hospitalist Physical - Constitutional Vitals: Temp Pulse Resp BP Pulse Ox 98.4 F 80 14 124/78 98 02/04/17 19:27 02/04/17 19:27 02/04/17 19:27 02/04/17 19:27 02/04/17 19:27 General appearance: Present: no acute distress, cachectic - EENT Eyes: Present: PERRL, EOM intact - Respiratory Respiratory effort: normal Respiratory: bilateral: diminished, negative: rhonchi, wheezing - Cardiovascular Rhythm: regular Heart Sounds: Present: S1 & S2. Absent: systolic murmur - Extremities Extremities: no ischemia - Abdominal General gastrointestinal: soft, non-tender, non-distended, normal bowel sounds, other (peg) Results - Labs CBC & Chem 7: 02/03/17 10:25 02/03/17 07:26 Labs: Laboratory Last Values WBC 7.1 K/mm3 (4.5-11.0) 02/03/17 10:25 RBC 4.90 M/mm3 (3.65-5.03) 02/03/17 10:25 Hgb 12.0 gm/dl (11.8-15.2) 02/03/17 10:25 Hct 38.3 % (35.5-45.6) 02/03/17 10:25 MCV 78 fl (84-94) L 02/03/17 10:25 MCH 25 pg (28-32) L 02/03/17 10:25 MCHC 31 % (32-34) L 02/03/17 10:25 RDW 15.5 % (13.2-15.2) H 02/03/17 10:25 Plt Count 105 K/mm3 (140-440) L 02/03/17 10:25 [place] % (Auto) Oncology Account Specialist 02/01/17 12:35 Lymph # Oncology Account Specialist 01/31/17 20:35 Add Manual Diff Complete 02/01/17 12:35 Total Counted 100 02/01/17 12:35 Seg Neutrophils % Oncology Account Specialist 01/31/17 20:35 Seg Neuts % (Manual) 42.0 % (40.0-70.0) 02/01/17 12:35 Band Neutrophils % 4.0 % 02/01/17 12:35 Lymphocytes % (Manual) 36.0 % (13.4-35.0) H 02/01/17 12:35 Reactive Lymphs % (Man) 0 % 02/01/17 12:35 Monocytes % (Manual) 18.0 % (0.0-7.3) H 02/01/17 12:35 Eosinophils % (Manual) 0 % (0.0-4.3) 02/01/17 12:35 Basophils % (Manual) 0 % (0.0-1.8) 02/01/17 12:35 Metamyelocytes % 0 % 02/01/17 12:35 Myelocytes % 0 % 02/01/17 12:35 Promyelocytes % 0 % 02/01/17 12:35 Blast Cells % 0 % 02/01/17 12:35 Nucleated RBC % Not Reportable 02/01/17 12:35 Seg Neutrophils # Man 3.4 K/mm3 (1.8-7.7) 02/01/17 12:35 Band Neutrophils # 0.3 K/mm3 02/01/17 12:35 Lymphocytes # (Manual) 3.0 K/mm3 (1.2-5.4) 02/01/17 12:35 Abs React Lymphs (Man) 0.0 K/mm3 02/01/17 12:35 Monocytes # (Manual) 1.5 K/mm3 (0.0-0.8) H 02/01/17 12:35 Eosinophils # (Manual) 0.0 K/mm3 (0.0-0.4) 02/01/17 12:35 Basophils # (Manual) 0.0 K/mm3 (0.0-0.1) 02/01/17 12:35 Metamyelocytes # 0.0 K/mm3 02/01/17 12:35 Myelocytes # 0.0 K/mm3 02/01/17 12:35 Promyelocytes # 0.0 K/mm3 02/01/17 12:35 Blast Cells # 0.0 K/mm3 02/01/17 12:35 WBC Morphology Not Reportable 02/01/17 12:35 Hypersegmented Neuts Not Reportable 02/01/17 12:35 Hyposegmented Neuts Not Reportable 02/01/17 12:35 Hypogranular Neuts Not Reportable 02/01/17 12:35 Smudge Cells Not Reportable 02/01/17 12:35 Toxic Granulation Not Reportable 02/01/17 12:35 Toxic Vacuolation Not Reportable 02/01/17 12:35 Dohle Bodies Not Reportable 02/01/17 12:35 Pelger-Huet Anomaly Not Reportable 02/01/17 12:35 Inessa Rods Not Reportable 02/01/17 12:35 Platelet Estimate Consistent w auto 02/01/17 12:35 Clumped Platelets Not Reportable 02/01/17 12:35 Plt Clumps, EDTA Not Reportable 02/01/17 12:35 Large Platelets Not Reportable 02/01/17 12:35 Giant Platelets Not Reportable 02/01/17 12:35 Platelet Satelliting Not Reportable 02/01/17 12:35 Plt Morphology Comment Not Reportable 02/01/17 12:35 RBC Morphology Not Reportable 02/01/17 12:35 Dimorphic RBCs Not Reportable 02/01/17 12:35 Polychromasia Not Reportable 02/01/17 12:35 Hypochromasia Not Reportable 02/01/17 12:35 Poikilocytosis Not Reportable 02/01/17 12:35 Anisocytosis Rare 02/01/17 12:35 Microcytosis Not Reportable 02/01/17 12:35 Macrocytosis Not Reportable 02/01/17 12:35 Spherocytes Not Reportable 02/01/17 12:35 Pappenheimer Bodies Not Reportable 02/01/17 12:35 Sickle Cells Not Reportable 02/01/17 12:35 Target Cells Rare 02/01/17 12:35 Tear Drop Cells Not Reportable 02/01/17 12:35 Ovalocytes Not Reportable 02/01/17 12:35 Helmet Cells Not Reportable 02/01/17 12:35 Carmona-Dudley Bodies Not Reportable 02/01/17 12:35 [place] Rings Not Reportable 02/01/17 12:35 [place] Cells Not Reportable 02/01/17 12:35 Bite Cells Not Reportable 02/01/17 12:35 Crenated Cell Not Reportable 02/01/17 12:35 Elliptocytes Not Reportable 02/01/17 12:35 Acanthocytes (Spur) Not Reportable 02/01/17 12:35 Rouleaux Not Reportable 02/01/17 12:35 Hemoglobin C Crystals Not Reportable 02/01/17 12:35 Schistocytes Not Reportable 02/01/17 12:35 Malaria parasites Not Reportable 02/01/17 12:35 Vamshi Bodies Not Reportable 02/01/17 12:35 Hem Pathologist Commnt No 02/01/17 12:35 Sodium 159 mmol/L (137-145) H 02/03/17 07:26 Potassium 4.0 mmol/L (3.6-5.0) 02/03/17 07:26 Chloride 126.3 mmol/L (98-107) H 02/03/17 07:26 Carbon Dioxide 20 mmol/L (22-30) L 02/03/17 07:26 Anion Gap 17 mmol/L 02/03/17 07:26 BUN 29 mg/dL (9-20) H 02/03/17 07:26 Creatinine 0.6 mg/dL (0.8-1.5) L 02/03/17 07:26 Estimated GFR > 60 ml/min 02/03/17 07:26 BUN/Creatinine Ratio 48 % 02/03/17 07:26 Glucose 83 mg/dL (75-100) 02/03/17 07:26 Lactic Acid 1.80 mmol/L (0.7-2.0) 02/01/17 16:42 Calcium 8.1 mg/dL (8.4-10.2) L 02/03/17 07:26 Total Bilirubin 0.70 mg/dL (0.1-1.2) 02/02/17 06:38 Direct Bilirubin 0.2 mg/dL (0-0.2) 02/01/17 12:35 Indirect Bilirubin 0.6 mg/dL 02/01/17 12:35 AST 237 units/L (5-40) H 02/02/17 06:38 ALT 154 units/L (7-56) H 02/02/17 06:38 Alkaline Phosphatase 59 units/L (35-129) 02/02/17 06:38 Ammonia 64.0 umol/L (25-60) H 02/01/17 08:33 Total Protein 8.8 g/dL (6.3-8.2) H 02/02/17 06:38 Albumin 3.0 g/dL (3.9-5) L 02/02/17 06:38 Albumin/Globulin Ratio 0.5 % 02/02/17 06:38 Urine Color [place] (Yellow) 01/31/17 21:12 Urine Turbidity Clear (Clear) 01/31/17 21:12 Urine pH 5.0 (5.0-7.0) 01/31/17 21:12 Ur Specific [place] 1.019 (1.003-1.030) 01/31/17 21:12 Urine Protein 100 mg/dl mg/dL (Negative) 01/31/17 21:12 Urine Glucose (UA) Neg mg/dL (Negative) 01/31/17 21:12 Urine Ketones Neg mg/dL (Negative) 01/31/17 21:12 Urine Blood Sm (Negative) 01/31/17 21:12 Urine Nitrite Neg (Negative) 01/31/17 21:12 Urine Bilirubin Neg (Negative) 01/31/17 21:12 Urine Urobilinogen 2.0 mg/dL (<2.0) 01/31/17 21:12 Ur Leukocyte Esterase Lg (Negative) 01/31/17 21:12 Urine WBC (Auto) 88.0 /HPF (0.0-6.0) H 01/31/17 21:12 Urine RBC (Auto) 15.0 /HPF (0.0-6.0) 01/31/17 21:12 Urine Bacteria (Auto) 2+ /HPF (Negative) 01/31/17 21:12 Urine Mucus Few /HPF 01/31/17 21:12 Hepatitis A IgM Ab Non-reactive (NonReactive) 02/01/17 16:42 Hep Bs Antigen Non-reactive (Negative) 02/01/17 16:42 Hep B Core IgM Ab Non-reactive (NonReactive) 02/01/17 16:42 Hepatitis C Antibody Reactive (NonReactive) A 02/01/17 16:42 Blood Type O POSITIVE 02/01/17 02:00 Antibody Screen Negative 02/01/17 02:00
[2017-02-05] MEDS: VANCOMYCIN/NS 1 GM/250 ML 1 GM/250 ML BAG IV SCH (05:56)
[2017-02-05] MEDS: DepaKENE Liq FEEDTUBE SCH ×2 (06:37→15:22)
[2017-02-05] MEDS: NACL 0.9% IV SCH (09:33)
[2017-02-05] MEDS: ROCEPHIN IV SCH (09:33)
[2017-02-05] MEDS: CEPHULAC PO SCH (09:37)
[2017-02-05] MEDS: KEPPRA FEEDTUBE SCH (09:37)
[2017-02-05] MEDS: PEPCID FEEDTUBE SCH (09:38)
--- NOTE | 2017-02-05 11:16 | Discharge Summary ---
Providers - Providers Date of Admission: 02/01/17 00:46 Date of discharge: 02/05/17 Attending physician: RAYMOND FISHER 02/01/17 04:55 Consult to Physician [CONS] Routine Consulting Provider: CAITLIN LENZ Reason For Exam: coffee ground emesis Place consult to:: dr. lenz Notified:: office Phone number called:: Was contact made?: No Time called:: 09:27 Comment:: left msg 02/01/17 06:46 Consult to Wound/ET Nurse [CONS] Routine Reason For Exam: wound eval 02/01/17 11:28 Consult to Wound/ET Nurse [CONS] Routine Reason For Exam: wound eval PEG site 02/02/17 16:22 Consult to Dietitian/Nutrition [CONS] Routine Physician Instructions: Reason For Exam: Reason for Consult: Malnutrition Primary care physician: CAUSTIC CRESYLATE SHIFT SUPERINTENDENT Hospitalization Reason for admission: fever Condition: Stable Pertinent studies: CT head US abdomen KUB Procedures: PEG replacement Hospital course: Patient is a 61 YO Male Penitentiary Resident at [place] with HIV, Dementia, Severe Malnutrition, Seizure Disorder, brought to ED for evaluation for fever and coffee ground emesis. Found to have sepsis likely secondary to UTI for which she is receiving antibiotics per ID recommendation. Also diagnosed with PEG malfunction which she required replacement and severe constipation that responded to laxatives. Also received IV fluids to correct hypernatremia. On medications regimens have been adjusted and is transferred back to longterm in stable condition. Discharge diagnoses: Sepsis- likely secondary to cath associated UTI Acute on Chronic Metabolic Encephalopathy Hypernatremia Seizure Disorder Constipation PEG malfunction Chronic immobility due to frailty. Sacral Pressure Ulcer Disposition[facility] Time spent for discharge: 40 min Core Measure Documentation - Palliative Care Palliative Care/ Comfort Measures: Not Applicable - Core Measures Any of the following diagnoses?: none Exam - Physical Exam Narrative exam: Seen and examined: - Constitutional Vitals: Temp Pulse Resp BP Pulse Ox 97.9 F 87 18 106/77 99 02/05/17 08:40 02/05/17 08:40 02/05/17 08:40 02/05/17 08:40 02/05/17 08:40 General appearance: Present: no acute distress, cachectic - EENT Eyes: Present: PERRL, EOM intact ENT: poor dentition - Respiratory Respiratory effort: normal Respiratory: bilateral: CTA, negative: rhonchi, wheezing - Cardiovascular Rhythm: regular Heart Sounds: Present: S1 & S2. Absent: systolic murmur - Extremities Extremities: no ischemia - Abdominal General gastrointestinal: Present: soft, non-tender, non-distended, normal bowel sounds, other (PEG) - Psychiatric Psychiatric: no intact judgment & insight Plan Activity: advance as tolerated, fall precautions Diet: per dietitian instruction, other (tube feeding) Follow up with: PRIMARY CARE, [Primary Care Provider] - 3-5 Days
[2017-02-05 14:47] VITALS: BP 111/82
== END 2017-02-05 16:30 | disposition home or self-care (01) | DRG 974 ==
LOC: ED 17:37 → 3A 02-01 00:46
PROVIDERS: ADMIT Internal Medicine; ATTEND Internal Medicine
PROC: 0DH63UZ Insertion of Feeding Device into Stomach, Percutaneous Approach (ICD-10-PCS; principal; 2017-02-02)
DX: A41.9 Sepsis, unspecified organism (principal); B20 Human immunodeficiency virus [HIV] disease; R53.2 Functional quadriplegia; G92 Toxic encephalopathy; E43 Unspecified severe protein-calorie malnutrition; K94.23 Gastrostomy malfunction; E87.0 Hyperosmolality and hypernatremia; Z68.1 Body mass index [BMI] 19.9 or less, adult; N30.00 Acute cystitis without hematuria; L89.151 Pressure ulcer of sacral region, stage 1; F03.90 Unspecified dementia, unspecified severity, without behavioral disturbance, psychotic disturbance, mood disturbance, and anxiety; K21.9 Gastro-esophageal reflux disease without esophagitis; N30.90 Cystitis, unspecified without hematuria; Y84.8 Other medical procedures as the cause of abnormal reaction of the patient, or of later complication, without mention of misadventure at the time of the procedure; Y82.8 Other medical devices associated with adverse incidents; B19.20 Unspecified viral hepatitis C without hepatic coma; I10 Essential (primary) hypertension; G40.909 Epilepsy, unspecified, not intractable, without status epilepticus; K76.0 Fatty (change of) liver, not elsewhere classified; K59.00 Constipation, unspecified; Z82.49 Family history of ischemic heart disease and other diseases of the circulatory system; Z86.73 Personal history of transient ischemic attack (TIA), and cerebral infarction without residual deficits
CPT/HCPCS: 36415; 70450; 74000; 74022; 76700; 80048; 80053; 80074; 80202; 81001; 82140; 84295; 85007; 85025; 85027; 86850; 86900; 86901; 87040; 87086; 93005; 93010; 96365; J0696; J1953; J3370; J7030; J7040; J7050; J7070; Q9963

== ENCOUNTER 2017-04-20 16:02 | Emergency (ER) | payer MEDICARE ==
--- NOTE | 2017-04-20 17:02 | Emergency Department Report ---
ED Abdominal Pain HPI - General Chief Complaint: Tube Replacement Stated Complaint: DISLODGE PEG TUBE Time Seen by Provider: 04/20/17 16:23 Source: EMS, old records reviewed Mode of arrival: Stretcher Limitations: Altered Mental Status, Physical Limitation - History of Present Illness Initial Comments: 61-year-old male with past medical history dementia, GERD, HIV, hypertension, and seizures presents to the hospital from half-way for G-tube dysfunction. Patient was noted to have purulent drainage around to stoma with erythema. No reports pain, vomiting, or fever. Patient alert and oriented to self but has a chronic part. Very difficult to understand. He appears to be bedbound with limited mobility to lower extremity - Related Data Home Medications Medication Instructions Recorded Confirmed Last Taken Acetaminophen 650 mg FEEDTUBE Q6HR PRN 02/01/17 02/01/17 Unknown Coreg 12.5 mg FEEDTUBE Q12HR 02/01/17 02/01/17 Unknown Docusate Sodium 100 mg FEEDTUBE BID 02/01/17 02/01/17 Unknown Famotidine [Pepcid] 20 mg FEEDTUBE Q12HR 02/01/17 02/01/17 Unknown Ferrous Sulfate [Ferosul Oral Liq] 220 mg FEEDTUBE QDAY 02/01/17 02/01/17 Unknown [address] QDAY PRN 02/01/17 02/01/17 Unknown Keppra ORAL LIQ 1,500 mg FEEDTUBE Q12HR 02/01/17 02/01/17 Unknown Senna S Tablet 17.2 mg FEEDTUBE QHS 02/01/17 02/01/17 Unknown VALPROIC ACID Liq 125 mg FEEDTUBE Q8HR 02/01/17 02/01/17 Unknown traMADol 100 mg FEEDTUBE Q8HR 02/01/17 02/01/17 01/31/17 14:00 Previous Rx's Medication Instructions Recorded Last Taken Type ALBUTEROL NEB's [Proventil 0.083% 2.5 mg IH Q4HRT PRN nebu 02/05/17 Unknown Rx NEBS] Famotidine [Pepcid] 20 mg FEEDTUBE BID tablet 02/05/17 Unknown Rx Lactulose [Cephulac] 10 gm PO QDAY oral.liqd 02/05/17 Unknown Rx Cephalexin Oral Liqd [Keflex] 500 mg FEEDTUBE Q8HR 7 Days bottle 04/21/17 Unknown Rx Allergies Allergy/AdvReac Type Severity Reaction Status Date / Time No Known Allergies Allergy Unverified 01/31/17 20:00 ED Review of Systems ROS: Stated complaint: DISLODGE PEG TUBE Other details as noted in HPI Comment: Unobtainable due to pts medical conditions ED Past Medical Hx - Past Medical History Hx Hypertension: Yes Hx GERD: Yes Hx Seizures: Yes Hx Dementia: Yes Hx HIV: Yes - Surgical History Additional Surgical History: Unknown - Social History Smoking Status: Unknown if ever smoked - Medications Home Medications: Home Medications Medication Instructions Recorded Confirmed Last Taken Type Acetaminophen 650 mg FEEDTUBE Q6HR PRN 02/01/17 02/01/17 Unknown History Coreg 12.5 mg FEEDTUBE Q12HR 02/01/17 02/01/17 Unknown History Docusate Sodium 100 mg FEEDTUBE BID 02/01/17 02/01/17 Unknown History Famotidine [Pepcid] 20 mg FEEDTUBE Q12HR 02/01/17 02/01/17 Unknown History Ferrous Sulfate [Ferosul Oral Liq] 220 mg FEEDTUBE QDAY 02/01/17 02/01/17 Unknown History Glycerin [address] QDAY PRN 02/01/17 02/01/17 Unknown History Keppra ORAL LIQ 1,500 mg FEEDTUBE Q12HR 02/01/17 02/01/17 Unknown History Senna S Tablet 17.2 mg FEEDTUBE QHS 02/01/17 02/01/17 Unknown History VALPROIC ACID Liq 125 mg FEEDTUBE Q8HR 02/01/17 02/01/17 Unknown History traMADol 100 mg FEEDTUBE Q8HR 02/01/17 02/01/17 01/31/17 14:00 History ALBUTEROL NEB's [Proventil 0.083% 2.5 mg IH Q4HRT PRN nebu 02/05/17 Unknown Rx NEBS] Famotidine [Pepcid] 20 mg FEEDTUBE BID tablet 02/05/17 Unknown Rx Lactulose [Cephulac] 10 gm PO QDAY oral.liqd 02/05/17 Unknown Rx Cephalexin Oral Liqd [Keflex] 500 mg FEEDTUBE Q8HR 7 Days bottle 04/21/17 Unknown Rx ED Physical Exam - General Limitations: Altered Mental Status, Physical Limitation - Other Other exam information: General: No limitations, patient is alert in no acute distress Head exam: Atraumatic, normocephalic Eyes exam: Normal appearance, ENT: Moist mucous membrane Neck exam: Normal inspection, full range of motion, no meningismus nontender Respiratory exam: Clear to auscultation bilateral, no wheezes, rales, crackles Cardiovascular: Normal rate and rhythm, normal heart sounds Abdomen: Soft, nondistended, left upper abdomen G-tube stoma with surrounding erythema and bloody purulent discharge. 20 Latv[place] G-tube in place. Midline vertical abdominal scar. Normal bowel sounds, no rebound, or guarding. 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 Back: Normal Inspection, full range of motion, no tenderness Neurologic: Alert, dysarthria, no facial droop, equal hand production machine computer operator, minimal spontaneous movements of the Psychiatric: normal affect, normal mood Skin: Chronic pressure ulcers to the Left hip, right outer foot, and left outer foot 2 ED Course Vital Signs 04/20/17 04/20/17 04/20/17 16:16 17:57 19:37 Temperature 99.5 F 98.5 F Pulse Rate 89 88 156 H Respiratory 17 18 23 Rate Blood Pressure 121/79 Blood Pressure 132/90 [Left] O2 Sat by Pulse 97 96 Oximetry 04/20/17 04/20/17 04/20/17 19:45 20:01 20:04 Temperature 98 F Pulse Rate 108 H 91 H Respiratory 24 20 Rate Blood Pressure 121/84 130/82 Blood Pressure [Left] O2 Sat by Pulse 95 95 Oximetry 04/20/17 04/20/17 04/20/17 20:06 20:15 20:30 Temperature Pulse Rate 87 91 H Respiratory 18 22 36 H Rate Blood Pressure 127/82 130/85 Blood Pressure [Left] O2 Sat by Pulse 94 97 Oximetry 04/20/17 04/20/17 04/20/17 20:45 21:00 21:15 Temperature Pulse Rate 90 85 86 Respiratory 21 24 30 H Rate Blood Pressure 130/86 125/89 129/83 Blood Pressure [Left] O2 Sat by Pulse 91 95 98 Oximetry 04/20/17 04/20/17 04/20/17 21:31 21:45 22:07 Temperature Pulse Rate 85 86 86 Respiratory 26 H 25 H 44 H Rate Blood Pressure 77/37 118/79 118/79 Blood Pressure [Left] O2 Sat by Pulse 94 94 Oximetry 04/20/17 04/20/17 04/20/17 22:15 22:19 22:30 Temperature 98 F Pulse Rate 86 88 Respiratory 16 26 H Rate Blood Pressure 120/81 104/82 Blood Pressure [Left] O2 Sat by Pulse Oximetry 04/20/17 22:45 Temperature Pulse Rate 88 Respiratory 20 Rate Blood Pressure 126/84 Blood Pressure [Left] O2 Sat by Pulse Oximetry - Consultations Consultation #1: 04/21/17 00:27 Case discussed several times with Dr. Lenz credit administration officer for GI. Recommended outpatient follow-up for a larger G-tube to be placed ED Medical Decision Making - Lab Data Result diagrams: 04/20/17 16:39 04/20/17 16:39 Lab Results 04/20/17 04/20/17 04/20/17 Range/Units 16:39 16:39 16:39 WBC 13.3 H (4.5-11.0) K/mm3 RBC 4.70 (3.65-5.03) M/mm3 Hgb 12.0 (11.8-15.2) gm/dl Hct 37.5 (35.5-45.6) % MCV 80 L (84-94) fl MCH 25 L (28-32) pg MCHC 32 (32-34) % RDW 14.6 (13.2-15.2) % Plt Count 186 (140-440) K/mm3 Add Manual Diff Complete Total Counted 100 Seg Neuts % (Manual) 47.0 (40.0-70.0) % Band Neutrophils % 0 % Lymphocytes % (Manual) 30.0 (13.4-35.0) % Reactive Lymphs % (Man) 0 % Monocytes % (Manual) 22.0 H (0.0-7.3) % Eosinophils % (Manual) 1.0 (0.0-4.3) % Basophils % (Manual) 0 (0.0-1.8) % Metamyelocytes % 0 % Myelocytes % 0 % Promyelocytes % 0 % Blast Cells % 0 % Nucleated RBC % Not Reportable Seg Neutrophils # Man 6.3 (1.8-7.7) K/mm3 Band Neutrophils # 0.0 K/mm3 Lymphocytes # (Manual) 4.0 (1.2-5.4) K/mm3 Abs React Lymphs (Man) 0.0 K/mm3 Monocytes # (Manual) 2.9 H (0.0-0.8) K/mm3 Eosinophils # (Manual) 0.1 (0.0-0.4) K/mm3 Basophils # (Manual) 0.0 (0.0-0.1) K/mm3 Metamyelocytes # 0.0 K/mm3 Myelocytes # 0.0 K/mm3 Promyelocytes # 0.0 K/mm3 Blast Cells # 0.0 K/mm3 WBC Morphology Not Reportable Hypersegmented Neuts Not Reportable Hyposegmented Neuts Not Reportable Hypogranular Neuts Not Reportable Smudge Cells Not Reportable Toxic Granulation Not Reportable Toxic Vacuolation Not Reportable Dohle Bodies Not Reportable Pelger-Huet Anomaly Not Reportable Inessa Rods Not Reportable Platelet Estimate Consistent w auto Clumped Platelets Not Reportable Plt Clumps, EDTA Not Reportable Large Platelets Not Reportable Giant Platelets Not Reportable Platelet Satelliting Not Reportable Plt Morphology Comment Not Reportable RBC Morphology Not Reportable Dimorphic RBCs Not Reportable Polychromasia Not Reportable Hypochromasia Not Reportable Poikilocytosis Not Reportable Anisocytosis 1+ Microcytosis Not Reportable Macrocytosis Not Reportable Spherocytes Not Reportable Pappenheimer Bodies Not Reportable Sickle Cells Not Reportable Target Cells Few Tear Drop Cells Not Reportable Ovalocytes Not Reportable Helmet Cells Not Reportable [place]obson Bodies Not Reportable [place] Rings Not Reportable [place] Cells Not Reportable Bite Cells Not Reportable Crenated Cell Not Reportable Elliptocytes Not Reportable Acanthocytes (Spur) Not Reportable Rouleaux Not Reportable Hemoglobin C Crystals Not Reportable Schistocytes Not Reportable Malaria parasites Not Reportable Vamshi Bodies Not Reportable Hem Pathologist Commnt No PT 15.1 H (12.2-14.9) Sec. INR 1.13 (0.87-1.13) APTT 32.7 (24.2-36.6) Sec. Sodium 131 L (137-145) mmol/L Potassium 4.8 (3.6-5.0) mmol/L Chloride 92.1 L (98-107) mmol/L Carbon Dioxide 28 (22-30) mmol/L Anion Gap 16 mmol/L BUN 16 (9-20) mg/dL Creatinine 0.4 L (0.8-1.5) mg/dL Estimated GFR > 60 ml/min BUN/Creatinine Ratio 40 % Glucose 80 (75-100) mg/dL Calcium 8.6 (8.4-10.2) mg/dL Total Bilirubin 0.70 (0.1-1.2) mg/dL AST 162 H (5-40) units/L ALT 114 H (7-56) units/L Alkaline Phosphatase 95 (35-129) units/L Total Protein 8.7 H (6.3-8.2) g/dL Albumin 2.7 L (3.9-5) g/dL Albumin/Globulin Ratio 0.5 % - Radiology Data Radiology results: report reviewed Read by radiologist CT abdomen and pelvis IV contrast: No abnormal fluid collection around the percutaneous gastrostomy tube. Tube has a satisfactory position in the stomach. Hypervascular focus in the liver likely hemangioma. Multiple bilateral renal cysts similar to prior ultrasound. Cholelithiasis. G-tube study: satisfactory position. - Medical Decision Making Case discussed several times with Dr. Lenz credit administration officer GI doctor. Patient has some mild local skin irritation with mild redness. Patient will be covered with Keflex. It appears that patient's G-tube stoma is larger than the G tube and there is leakage of gastric contents from the stoma around the tube. Dr. Lenz advises that the patient will require a larger G-tube which can be performed as an outpatient Patient received Ancef in the ED 1 Patient received 1 L normal saline in the ED for mild hyponatremia I readjusted the bumper of the Gtube so there that it was more adherant to skin. gauze pads placed between the skin and bumper to reduce pressure - Differential Diagnosis G-tube infection, G-tube dislodgment Critical Care Time: No Critical care attestation.: If time is entered above; I have spent that time in minutes in the direct care of this critically ill patient, excluding procedure time. ED Disposition Clinical Impression: Leakage of gastrostomy site, Hyponatremia, LFT elevation, Cholelithiasis Disposition: TO HOME OR SELFCARE Is pt being admited?: No Does the pt Need Aspirin: No Condition: Stable Instructions: How to Use and Care for Your PEG Tube (ED) Additional Instructions: Follow-up with the GI doctor as soon as possible to have a larger PEG to placed. At this time it appears that the tube is too small relative to the stoma and gastric contents are leaking out around the tube. Keflex has been prescribed due to mild skin redness. Please return if symptoms worsen. Prescriptions: Cephalexin Oral Liqd [Keflex] 500 mg FEEDTUBE Q8HR 7 Days bottle Referrals: CAITLIN LENZ MD [Staff Physician] - 2-3 Days Time of Disposition: 00:41
[2017-04-20 17:34] LABS: Hematocrit 37.5 % (35.5-45.6); Mean Corpuscular HGB Conc 32 % (32-34); Mean Corpuscular Hemoglobin 25 pg (28-32); Mean Corpuscular Volume 80 fl (84-94); Platelet Count 186 K/mm3 (140-440); Red Cell Distribution Width 14.6 % (13.2-15.2)
[2017-04-20 17:38] LABS: INR 1.13 (0.87-1.13)
[2017-04-20 17:39] LABS: Partial Thromboplastin Time 32.7 Sec. (24.2-36.6)
[2017-04-20 17:49] LABS: Alanine Aminotransferase 114 units/L (7-56); Albumin 2.7 g/dL (3.9-5); BUN/Creatinine Ratio 40; Blood Urea Nitrogen 16 mg/dL (9-20); Calcium 8.6 mg/dL (8.4-10.2); Hemolysis Index 6
[2017-04-20] MEDS ORDERED: NACL ONE (17:56)
[2017-04-20 18:07] LABS: Basophils % (Manual) 0 % (0.0-1.8); Total Cells Counted 100
[2017-04-20 18:09] LABS: Anisocytosis 1+; Platelet Estimate Consistent w Auto; Target Cells Few
[2017-04-20] MEDS ORDERED: NACL 0.9% 1000 ML 1,000 ML IV ONE (18:25)
--- NOTE | 2017-04-20 20:10 | Cat Scan Report ---
FINAL REPORT EXAM: CT ABDOMEN PELVIS W CON HISTORY: drainage around g tube TECHNIQUE: Standard enhanced CT of the abdomen and pelvis. Coronal and sagittal reconstruction was also performed. Imaging through the kidneys and bladder was obtained. Contrast: 100 mL Omnipaque 300 given IV. PRIORS: Ultrasound the abdomen 02/01/2017 FINDINGS: Percutaneous gastrostomy tube is in place within the distal stomach. The balloon is inflated within the stomach. No significant fluid collection is present around the tube. No evidence for abscess is seen. Within the abdomen, the liver demonstrates a hypervascular ovoid focus in the lateral dome of the right lobe measuring 1.7 x 2.6 cm (axial image 41). This becomes isodense on delayed imaging and is likely a hemangioma. Bilateral renal cysts are identified. The largest is in the anterior midpole right kidney measuring 4.5 x 4.6 cm (axial image 88, series 3). On the left, the largest is located posteriorly in the midpole measuring 1.3 cm. These have been seen on prior ultrasound and appear benign. The spleen, pancreas, adrenal glands, and kidneys are unremarkable. Gallstones in the gallbladder are again noted. No evidence for retroperitoneal or pelvic lymphadenopathy is seen. Moderate stool is present throughout the entire colon which can be associated constipation. The bowel loops have normal caliber. No soft tissue mass, fluid collection, inflammatory change, or free air is seen within the abdomen or pelvis. The appendix is normal. Within the pelvis, the bladder is unremarkable. Bilateral ureteral jets are noted on delayed imaging. The prostate is normal. No evidence for mass or lymphadenopathy is seen in the pelvis. Images through the upper abdomen include the lung bases which are expanded and clear. Bony structures show linear atelectasis in the right lung base posteriorly. There also minimal atelectasis in the posterior left base. IMPRESSION: 1. No evidence for abnormal fluid collection around the percutaneous gastrostomy tube. The tube has a satisfactory position within the stomach. 2. Hypervascular focus in the lateral dome of the right lobe of the liver, consistent with a hemangioma 3. Multiple bilateral renal cysts which have been seen on prior ultrasound as well. 4. Cholelithiasis
[2017-04-20] MEDS ORDERED: ceFAZolin 1 GM in NACL 0.9% 20 ML IV SCH (22:00)
--- NOTE | 2017-04-20 23:11 | XRay Report ---
FINAL REPORT EXAM: XR G-TUBE STUDY HISTORY: g tube stoma drainage COMPARISON: CT of the abdomen and pelvis from the same date. FINDINGS: Portable AP view of the abdomen obtained before and after administration of enteric contrast into the gastrostomy tube. This demonstrates expected positioning of the distal tip at the level the distal gastric body. No extravasation of contrast. Nonobstructive bowel gas pattern. Contrast within the urinary bladder from earlier CT of the abdomen and pelvis with contrast. IMPRESSION: Satisfactory position of gastrostomy tube.
[2017-04-21 02:25] VITALS: BP 132/80
== END 2017-04-21 02:26 | disposition home or self-care (01) ==
LOC: ED 16:02
DX: K94.29 Other complications of gastrostomy (principal); E87.1 Hypo-osmolality and hyponatremia; K80.20 Calculus of gallbladder without cholecystitis without obstruction; R94.5 Abnormal results of liver function studies; K21.9 Gastro-esophageal reflux disease without esophagitis; R56.9 Unspecified convulsions; Z21 Asymptomatic human immunodeficiency virus [HIV] infection status; F03.90 Unspecified dementia, unspecified severity, without behavioral disturbance, psychotic disturbance, mood disturbance, and anxiety
CPT/HCPCS: 36415; 74018; 74177; 80053; 85007; 85025; 85610; 85730; 96361; 96374; 99285; J0690; J7030; Q9963; Q9967

== ENCOUNTER 2017-05-30 16:51 | Inpatient (IN) | payer MEDICARE ==
[2017-05-30 18:29] LABS: INR 1.1 (0.87-1.13)
[2017-05-30 18:29] LABS: Hematocrit 40.3 % (35.5-45.6); Hemoglobin 12.8 gm/dl (11.8-15.2); Mean Corpuscular HGB Conc 32 % (32-34); Mean Corpuscular Volume 80 fl (84-94); Platelet Count 189 K/mm3 (140-440); Red Blood Count 5.04 M/mm3 (3.65-5.03); Red Cell Distribution Width 13.8 % (13.2-15.2)
[2017-05-30 18:30] LABS: Mean Corpuscular Hemoglobin 26 pg (28-32)
[2017-05-30 18:30] LABS: Partial Thromboplastin Time 27.9 Sec. (24.2-36.6)
[2017-05-30 18:33] LABS: Alanine Aminotransferase 43 units/L (7-56); Albumin 2.6 g/dL (3.9-5); BUN/Creatinine Ratio 34; Blood Urea Nitrogen 17 mg/dL (9-20); Calcium 8.6 mg/dL (8.4-10.2); Hemolysis Index 5
--- NOTE | 2017-05-30 18:36 | Emergency Department Report ---
ED Extremity Problem HPI - General Chief complaint: Extremity Problem,Nontraumatic Time Seen by Provider: 05/30/17 17:39 Source: patient, EMS Mode of arrival: Stretcher Limitations: Physical Limitation - History of Present Illness Initial comments: 61-year-old male with past medical history of stroke, HTN, seizures came was brought from the senior care for dorsalis pedis artery occlusion. Patient was in senior care and a Doppler was done which showed occlusion of the right dorsalis pedis artery. pt has a g tube in place,pt is under no acute distress. Denies n/v/cp/sob Complaint: extremity pain -: Gradual Location: right, lower extremity History of Same: No Radiation: none Severity scale (0 -10): 3 Quality: aching Consistency: intermittent Improves with: nothing Worsens with: nothing Associated Symptoms: denies other symptoms - Related Data Home Medications Medication Instructions Recorded Confirmed Last Taken Acetaminophen 650 mg FEEDTUBE Q6HR PRN 02/01/17 02/01/17 Unknown Coreg 12.5 mg FEEDTUBE Q12HR 02/01/17 02/01/17 Unknown Docusate Sodium 100 mg FEEDTUBE BID 02/01/17 02/01/17 Unknown Famotidine [Pepcid] 20 mg FEEDTUBE Q12HR 02/01/17 02/01/17 Unknown Ferrous Sulfate [Ferosul Oral Liq] 220 mg FEEDTUBE QDAY 02/01/17 02/01/17 Unknown Glycerin 1 suppositor [place] QDAY PRN 02/01/17 02/01/17 Unknown Keppra ORAL LIQ 1,500 mg FEEDTUBE Q12HR 02/01/17 02/01/17 Unknown Senna S Tablet 17.2 mg FEEDTUBE QHS 02/01/17 02/01/17 Unknown VALPROIC ACID Liq 125 mg FEEDTUBE Q8HR 02/01/17 02/01/17 Unknown traMADol 100 mg FEEDTUBE Q8HR 02/01/17 02/01/17 01/31/17 14:00 Previous Rx's Medication Instructions Recorded Last Taken Type ALBUTEROL NEB's [Proventil 0.083% 2.5 mg IH Q4HRT PRN nebu 02/05/17 Unknown Rx NEBS] Famotidine [Pepcid] 20 mg FEEDTUBE BID tablet 02/05/17 Unknown Rx Lactulose [Cephulac] 10 gm PO QDAY oral.liqd 02/05/17 Unknown Rx Cephalexin Oral Liqd [Keflex] 500 mg FEEDTUBE Q8HR 7 Days bottle 04/21/17 Unknown Rx Allergies Allergy/AdvReac Type Severity Reaction Status Date / Time No Known Allergies Allergy Unverified 01/31/17 20:00 ED Review of Systems ROS: Stated complaint: DVT Other details as noted in HPI Constitutional: denies: chills, fever Eyes: denies: eye pain, eye discharge, vision change ENT: denies: ear pain, throat pain Respiratory: denies: cough, shortness of breath, wheezing Cardiovascular: denies: chest pain, palpitations Endocrine: no symptoms reported Gastrointestinal: denies: abdominal pain, nausea, diarrhea Genitourinary: denies: urgency, dysuria Musculoskeletal: denies: back pain, joint swelling, arthralgia Skin: denies: rash, lesions Neurological: denies: headache, weakness, paresthesias Psychiatric: denies: anxiety, depression Hematological/Lymphatic: denies: easy bleeding, easy bruising ED Past Medical Hx - Past Medical History Hx Hypertension: Yes Hx GERD: Yes Hx Seizures: Yes Hx Dementia: Yes Hx HIV: Yes - Surgical History Additional Surgical History: Unknown - Social History Smoking Status: Unknown if ever smoked - Medications Home Medications: Home Medications Medication Instructions Recorded Confirmed Last Taken Type Acetaminophen 650 mg FEEDTUBE Q6HR PRN 02/01/17 02/01/17 Unknown History Coreg 12.5 mg FEEDTUBE Q12HR 02/01/17 02/01/17 Unknown History Docusate Sodium 100 mg FEEDTUBE BID 02/01/17 02/01/17 Unknown History Famotidine [Pepcid] 20 mg FEEDTUBE Q12HR 02/01/17 02/01/17 Unknown History Ferrous Sulfate [Ferosul Oral Liq] 220 mg FEEDTUBE QDAY 02/01/17 02/01/17 Unknown History Glycerin 1 suppositor [place] QDAY PRN 02/01/17 02/01/17 Unknown History Keppra ORAL LIQ 1,500 mg FEEDTUBE Q12HR 02/01/17 02/01/17 Unknown History Senna S Tablet 17.2 mg FEEDTUBE QHS 02/01/17 02/01/17 Unknown History VALPROIC ACID Liq 125 mg FEEDTUBE Q8HR 02/01/17 02/01/17 Unknown History traMADol 100 mg FEEDTUBE Q8HR 02/01/17 02/01/17 01/31/17 14:00 History ALBUTEROL NEB's [Proventil 0.083% 2.5 mg IH Q4HRT PRN nebu 02/05/17 Unknown Rx NEBS] Famotidine [Pepcid] 20 mg FEEDTUBE BID tablet 02/05/17 Unknown Rx Lactulose [Cephulac] 10 gm PO QDAY oral.liqd 02/05/17 Unknown Rx Cephalexin Oral Liqd [Keflex] 500 mg FEEDTUBE Q8HR 7 Days bottle 04/21/17 Unknown Rx ED Physical Exam - General Limitations: Physical Limitation General appearance: alert, in no apparent distress - Head Head exam: Present: atraumatic, normocephalic - Eye Eye exam: Present: normal appearance - ENT ENT exam: Present: mucous membranes moist - Neck Neck exam: Present: normal inspection - Respiratory Respiratory exam: Present: normal lung sounds bilaterally. Absent: respiratory distress - Cardiovascular Cardiovascular Exam: Present: regular rate, normal rhythm. Absent: systolic murmur, diastolic murmur, rubs, gallop - GI/Abdominal GI/Abdominal exam: Present: soft, normal bowel sounds - Rectal Rectal exam: Present: deferred - Extremities Exam Extremities exam: Present: normal inspection - Back Exam Back exam: Present: normal inspection - Neurological Exam Neurological exam: Present: alert, oriented X3 - Expanded Neurological Exam Expanded Patient oriented to: Present: person, place Motor strength exam: LLE: 0 (+ pulse present on right extremity) - Psychiatric Psychiatric exam: Present: normal affect, normal mood - Skin Skin exam: Present: warm, dry, intact, normal color. Absent: rash ED Course Vital Signs 05/30/17 05/30/17 05/30/17 17:05 17:14 17:30 Temperature 98.2 F Pulse Rate 82 87 Respiratory 21 21 Rate Blood Pressure 132/88 132/88 116/81 Blood Pressure 132/88 [Left] O2 Sat by Pulse 98 98 Oximetry 05/30/17 05/30/17 05/30/17 18:00 18:30 19:00 Temperature Pulse Rate 84 84 79 Respiratory 21 16 23 Rate Blood Pressure 118/83 118/83 133/92 Blood Pressure [Left] O2 Sat by Pulse 98 98 98 Oximetry ED Medical Decision Making - Lab Data Result diagrams: 05/30/17 18:02 05/30/17 18:02 - Medical Decision Making 61-year-old male with past medical history stroke,dementia, HTN, was brought in for concern for dorsalis pedis artery occlusion. pt has good pulses on the exam , + warm to touch, no gangrene noted, able to move fingers in all directions. Discussed with ( vascular surgery) and per him nothing to do at this point and no blood thinners needed, pt does have elevated troponin and will be admitted overnight for observation. Critical care attestation.: If time is entered above; I have spent that time in minutes in the direct care of this critically ill patient, excluding procedure time. ED Disposition Clinical Impression: Elevated troponin Disposition: OP ADMIT IP TO THIS HOSP Is pt being admited?: Yes Does the pt Need Aspirin: No
[2017-05-30 18:49] LABS: Chol/HDL Ratio 2.85 %; HDL Cholesterol 28 mg/dL (40-59); LDL Cholesterol,Direct 42 mg/dL (50-130)
[2017-05-30 19:13] LABS: Basophils % (Manual) 0 % (0.0-1.8); Eosinophils % (Manual) 0 % (0.0-4.3); Myelocytes # (Manual) 0.1 K/mm3; Total Cells Counted 100
[2017-05-30 19:14] LABS: Anisocytosis 1+; Platelet Estimate Consistent w Auto
[2017-05-30 19:15] LABS: Poikilocytosis 1+; Target Cells Few
--- NOTE | 2017-05-30 19:50 | XRay Report ---
FINAL REPORT PROCEDURE: XR CHEST 1V AP TECHNIQUE: Chest radiograph anteroposterior view. CPT 63941 HISTORY: cough COMPARISON: 01/31/2017 FINDINGS: Heart: Normal. Mediastinum/Vessels: Normal. Lungs/Pleural space: Questionable right infrahilar masslike density. No infiltrate, effusion, or pneumothorax. Stable calcified granuloma in the left upper lobe. Bony thorax: No acute osseous abnormality. Life support devices: None. IMPRESSION: Questionable right infrahilar masslike density. Follow up with CT chest.
[2017-05-30] MEDS ORDERED: ACETAMINOPHEN 650 MG FEEDTUBE PRN (21:15)
[2017-05-30] MEDS ORDERED: PROVENTIL IH PRN (21:15)
--- NOTE | 2017-05-30 21:15 | History and Physical Report ---
History of Present Illness Date of examination: 05/30/17 Date of admission: 05/30/17 19:36 Chief complaint: See dictated H/p in reports History of present illness: IROQUOIS See dictated H/p in reports Medications and Allergies Allergies Allergy/AdvReac Type Severity Reaction Status Date / Time No Known Allergies Allergy Unverified 01/31/17 20:00 Home Medications Medication Instructions Recorded Confirmed Last Taken Type Acetaminophen 650 mg FEEDTUBE Q6HR PRN 02/01/17 02/01/17 Unknown History Coreg 12.5 mg FEEDTUBE Q12HR 02/01/17 02/01/17 Unknown History Docusate Sodium 100 mg FEEDTUBE BID 02/01/17 02/01/17 Unknown History Famotidine [Pepcid] 20 mg FEEDTUBE Q12HR 02/01/17 02/01/17 Unknown History Ferrous Sulfate [Ferosul Oral Liq] 220 mg FEEDTUBE QDAY 02/01/17 02/01/17 Unknown History Glycerin 1 suppositor [place] QDAY PRN 02/01/17 02/01/17 Unknown History Keppra ORAL LIQ 1,500 mg FEEDTUBE Q12HR 02/01/17 02/01/17 Unknown History Senna S Tablet 17.2 mg FEEDTUBE QHS 02/01/17 02/01/17 Unknown History VALPROIC ACID Liq 125 mg FEEDTUBE Q8HR 02/01/17 02/01/17 Unknown History traMADol 100 mg FEEDTUBE Q8HR 02/01/17 02/01/17 01/31/17 14:00 History ALBUTEROL NEB's [Proventil 0.083% 2.5 mg IH Q4HRT PRN nebu 02/05/17 Unknown Rx NEBS] Famotidine [Pepcid] 20 mg FEEDTUBE BID tablet 02/05/17 Unknown Rx Lactulose [Cephulac] 10 gm PO QDAY oral.liqd 02/05/17 Unknown Rx Cephalexin Oral Liqd [Keflex] 500 mg FEEDTUBE Q8HR 7 Days bottle 04/21/17 Unknown Rx Exam - Constitutional Vitals: Temp Pulse Resp BP Pulse Ox 98.2 F 82 22 135/88 98 05/30/17 17:14 05/30/17 20:00 05/30/17 20:00 05/30/17 20:00 05/30/17 20:00 Results - Labs CBC & Chem 7: 05/30/17 18:02 05/30/17 18:02 Labs: Laboratory Last Values WBC 12.1 K/mm3 (4.5-11.0) H 05/30/17 18:02 RBC 5.04 M/mm3 (3.65-5.03) H 05/30/17 18:02 Hgb 12.8 gm/dl (11.8-15.2) 05/30/17 18:02 Hct 40.3 % (35.5-45.6) 05/30/17 18:02 MCV 80 fl (84-94) L 05/30/17 18:02 MCH 26 pg (28-32) L 05/30/17 18:02 MCHC 32 % (32-34) 05/30/17 18:02 RDW 13.8 % (13.2-15.2) 05/30/17 18:02 Plt Count 189 K/mm3 (140-440) 05/30/17 18:02 Lymph % (Auto) Jewelry Mold Maker 05/30/17 18:02 [place] % (Auto) Jewelry [employer] Maker 05/30/17 18:02 Eos % (Auto) Jewelry Mold Maker 05/30/17 18:02 Baso % (Auto) Jewelry Mold Maker 05/30/17 18:02 Lymph # Jewelry Mold Maker 05/30/17 18:02 [place] # Jewelry Mold Maker 05/30/17 18:02 Eos # Jewelry Mold Maker 05/30/17 18:02 Baso # Jewelry Mold Maker 05/30/17 18:02 Add Manual Diff Complete 05/30/17 18:02 Total Counted 100 05/30/17 18:02 Seg Neutrophils % Jewelry Mold Maker 05/30/17 18:02 Seg Neuts % (Manual) 64.0 % (40.0-70.0) 05/30/17 18:02 Band Neutrophils % 0 % 05/30/17 18:02 Lymphocytes % (Manual) 15.0 % (13.4-35.0) 05/30/17 18:02 Reactive Lymphs % (Man) 0 % 05/30/17 18:02 Monocytes % (Manual) 20.0 % (0.0-7.3) H 05/30/17 18:02 Eosinophils % (Manual) 0 % (0.0-4.3) 05/30/17 18:02 Basophils % (Manual) 0 % (0.0-1.8) 05/30/17 18:02 Metamyelocytes % 0 % 05/30/17 18:02 Myelocytes % 1.0 % 05/30/17 18:02 Promyelocytes % 0 % 05/30/17 18:02 Blast Cells % 0 % 05/30/17 18:02 Nucleated RBC % Not Reportable 05/30/17 18:02 Seg Neutrophils # Jewelry Mold Maker 05/30/17 18:02 Seg Neutrophils # Man 7.7 K/mm3 (1.8-7.7) 05/30/17 18:02 Band Neutrophils # 0.0 K/mm3 05/30/17 18:02 Lymphocytes # (Manual) 1.8 K/mm3 (1.2-5.4) 05/30/17 18:02 Abs React Lymphs (Man) 0.0 K/mm3 05/30/17 18:02 Monocytes # (Manual) 2.4 K/mm3 (0.0-0.8) H 05/30/17 18:02 Eosinophils # (Manual) 0.0 K/mm3 (0.0-0.4) 05/30/17 18:02 Basophils # (Manual) 0.0 K/mm3 (0.0-0.1) 05/30/17 18:02 Metamyelocytes # 0.0 K/mm3 05/30/17 18:02 Myelocytes # 0.1 K/mm3 05/30/17 18:02 Promyelocytes # 0.0 K/mm3 05/30/17 18:02 Blast Cells # 0.0 K/mm3 05/30/17 18:02 WBC Morphology Not Reportable 05/30/17 18:02 Hypersegmented Neuts Not Reportable 05/30/17 18:02 Hyposegmented Neuts Not Reportable 05/30/17 18:02 Hypogranular Neuts Not Reportable 05/30/17 18:02 Smudge Cells Not Reportable 05/30/17 18:02 Toxic Granulation Not Reportable 05/30/17 18:02 Toxic Vacuolation Not Reportable 05/30/17 18:02 Dohle Bodies Not Reportable 05/30/17 18:02 Pelger-Huet Anomaly Not Reportable 05/30/17 18:02 Inessa Rods Not Reportable 05/30/17 18:02 Platelet Estimate Consistent w auto 05/30/17 18:02 Clumped Platelets Not Reportable 05/30/17 18:02 Plt Clumps, EDTA Not Reportable 05/30/17 18:02 Large Platelets Not Reportable 05/30/17 18:02 Giant Platelets Not Reportable 05/30/17 18:02 Platelet Satelliting Not Reportable 05/30/17 18:02 Plt Morphology Comment Not Reportable 05/30/17 18:02 RBC Morphology Not Reportable 05/30/17 18:02 Dimorphic RBCs Not Reportable 05/30/17 18:02 Polychromasia Not Reportable 05/30/17 18:02 Hypochromasia Not Reportable 05/30/17 18:02 Poikilocytosis 1+ 05/30/17 18:02 Anisocytosis 1+ 05/30/17 18:02 Microcytosis Not Reportable 05/30/17 18:02 Macrocytosis Not Reportable 05/30/17 18:02 Spherocytes Not Reportable 05/30/17 18:02 Pappenheimer Bodies Not Reportable 05/30/17 18:02 Sickle Cells Not Reportable 05/30/17 18:02 Target Cells Few 05/30/17 18:02 Tear Drop Cells Not Reportable 05/30/17 18:02 Ovalocytes Not Reportable 05/30/17 18:02 Helmet Cells Not Reportable 05/30/17 18:02 Carmona-Morningside Bodies Not Reportable 05/30/17 18:02 Norman Rings Not Reportable 05/30/17 18:02 Annmarie Cells Not Reportable 05/30/17 18:02 Bite Cells Not Reportable 05/30/17 18:02 Crenated Cell Not Reportable 05/30/17 18:02 Elliptocytes Not Reportable 05/30/17 18:02 Acanthocytes (Spur) Not Reportable 05/30/17 18:02 Rouleaux Not Reportable 05/30/17 18:02 Hemoglobin C Crystals Not Reportable 05/30/17 18:02 Schistocytes Not Reportable 05/30/17 18:02 Malaria parasites Not Reportable 05/30/17 18:02 Vamshi Bodies Not Reportable 05/30/17 18:02 Hem Pathologist Commnt No 05/30/17 18:02 PT 14.8 Sec. (12.2-14.9) 05/30/17 18:06 INR 1.10 (0.87-1.13) 05/30/17 18:06 APTT 27.9 Sec. (24.2-36.6) 05/30/17 18:06 Sodium 134 mmol/L (137-145) L 05/30/17 18:02 Potassium 4.5 mmol/L (3.6-5.0) 05/30/17 18:02 Chloride 95.7 mmol/L (98-107) L 05/30/17 18:02 Carbon Dioxide 30 mmol/L (22-30) 05/30/17 18:02 Anion Gap 13 mmol/L 05/30/17 18:02 BUN 17 mg/dL (9-20) 05/30/17 18:02 Creatinine 0.5 mg/dL (0.8-1.5) L 05/30/17 18:02 Estimated GFR > 60 ml/min 05/30/17 18:02 BUN/Creatinine Ratio 34 % 05/30/17 18:02 Glucose 96 mg/dL (75-100) 05/30/17 18:02 Calcium 8.6 mg/dL (8.4-10.2) 05/30/17 18:02 Total Bilirubin 0.70 mg/dL (0.1-1.2) 05/30/17 18:02 AST 81 units/L (5-40) H 05/30/17 18:02 ALT 43 units/L (7-56) 05/30/17 18:02 Alkaline Phosphatase 85 units/L (35-129) 05/30/17 18:02 Troponin T 0.148 ng/mL (0.00-0.029) H* 05/30/17 18:02 Total Protein 10.1 g/dL (6.3-8.2) H 05/30/17 18:02 Albumin 2.6 g/dL (3.9-5) L 05/30/17 18:02 Albumin/Globulin Ratio 0.3 % 05/30/17 18:02 Triglycerides 70 mg/dL (2-149) 05/30/17 18:02 Cholesterol 80 mg/dL (50-199) 05/30/17 18:02 LDL Cholesterol Direct 42 mg/dL (50-130) L 05/30/17 18:02 HDL Cholesterol 28 mg/dL (40-59) L 05/30/17 18:02 Cholesterol/HDL Ratio 2.85 % 05/30/17 18:02
[2017-05-30] MEDS ORDERED: FERROUS SULFATE 220 MG FEEDTUBE SCH (21:30)
[2017-05-30] MEDS ORDERED: DOCUSATE FEEDTUBE SCH (22:00)
[2017-05-30] MEDS ORDERED: NON-FORMULARY (Coreg 12.5 MG) FEEDTUBE SCH (22:00)
[2017-05-30] MEDS ORDERED: TRAMADOL 100 MG FEEDTUBE SCH (22:00)
[2017-05-30] MEDS ORDERED: VALPROIC ACID 125 MG FEEDTUBE SCH (22:00)
[2017-05-30] MEDS ORDERED: SENNA FEEDTUBE SCH (22:00)
[2017-05-30] MEDS ORDERED: KEPPRA FEEDTUBE SCH (22:00)
[2017-05-30] MEDS ORDERED: NON-FORMULARY (Docusate Sodium 100 MG) FEEDTUBE SCH (22:00)
[2017-05-30] MEDS ORDERED: TYLENOL PO PRN (22:44)
[2017-05-30] MEDS ORDERED: TYLENOL FEEDTUBE PRN (23:00)
[2017-05-30] MEDS: COLACE FEEDTUBE SCH (23:35)
[2017-05-30] MEDS: DepaKENE Liq FEEDTUBE SCH (23:36)
[2017-05-30] MEDS: PEPCID FEEDTUBE SCH (23:37)
[2017-05-30] MEDS: ULTRAM FEEDTUBE SCH (23:37)
[2017-05-30] MEDS: SENOKOT S PO SCH (23:37)
[2017-05-30] MEDS: KEPPRA FEEDTUBE SCH (23:37)
[2017-05-30] MEDS: COREG FEEDTUBE SCH (23:45)
[2017-05-31] MEDS: ULTRAM FEEDTUBE SCH ×3 (07:00→21:45)
[2017-05-31] MEDS: DepaKENE Liq FEEDTUBE SCH ×3 (07:01→21:46)
[2017-05-31] MEDS: NACL 0.9% 1000 ML 1,000 ML IV SCH ×2 (07:02→17:03)
--- NOTE | 2017-05-31 07:24 | History and Physical Report ---
CHIEF COMPLAINT: Sent from [facility] for dorsalis pedis artery occlusion. HISTORY OF PRESENT ILLNESS: The patient is a 61-year-old -[place] male with severe dementia and seizure disorder and hypertension who is sent in from [facility] for dorsalis pedis artery occlusion. The patient had a Doppler done in the [facility], which showed occlusion of the right dorsalis pedis artery. The patient was sent for evaluation. Workup in the Emergency Room revealed a high troponin and hence the admission. The patient did not have any chest pain. No shortness of breath. Right extremity pain present. History not available regarding claudication symptoms. No palpitations. The patient is demented and a poor historian. PAST MEDICAL HISTORY: Significant for hypertension, gastroesophageal reflux disease, seizures, dementia, and HIV. PAST SURGICAL HISTORY: PEG tube insertion. SOCIAL HISTORY: Unknown if patient ever smoked or alcohol. FAMILY HISTORY: Unavailable. CURRENT MEDICATIONS: Keppra 1500 mg b.i.d., valproic acid 125 q.8h., albuterol nebulizer treatments q.i.d. p.r.n., Pepcid 20 mg twice a day, lactulose 10 mg once a day and cephalexin 500 mg q. 8 hours. REVIEW OF SYSTEMS: Significant for right foot pain. Otherwise, review of systems is essentially negative. No recent seizures. A 14-point review of systems done. PHYSICAL EXAMINATION: GENERAL: Elderly male, alert, not oriented. VITAL SIGNS: Blood pressure is 118/83, temperature is 98, pulse is 84, respirations are 21, sats are 98%. HEENT: Unremarkable. Pupils equal and reactive. NECK: Supple, no lymphadenopathy, no thyromegaly, no carotid bruit. LUNGS: Clear to auscultation and percussion. CARDIOVASCULAR: S1, S2 heard. No gallop, no murmur, no rub. Apical impulse in left fifth intercostal space and midclavicular line. ABDOMEN: Soft and benign. No hepatosplenomegaly. No guarding, no rigidity. Hernial orifices are normal. EXTREMITIES: Dorsalis pedis is well felt. CENTRAL NERVOUS SYSTEM: Alert, but not oriented. Moves all 4 extremities. LABORATORY DATA: Significant for white count of 12,100, hemoglobin of 12.8 and hematocrit of 40.3, platelet count of 189,000. BUN and creatinine 17 and 0.5. Sodium is 134. Troponin is 0.148, AST 81, total protein is 10.1 with albumin is 2.6. EKG shows a normal sinus rhythm, nonspecific ST-T wave changes. ASSESSMENT AND PLAN: 1. Elevated troponin. The patient is admitted to rule out cardiac ischemia because of the elevated troponin. Serial troponins and Lexiscan in the morning. 2. Hyponatremia, mild. IV fluids for now. 3. Peripheral arterial disease. Dorsalis pedis is well felt. We will get a Vascular Surgery consult. 4. Seizure disorder. Continue Keppra. 4. Hypertension. Continue Coreg 12.5 mg q.12h. 5. Gastroesophageal reflux disease. Continue Pepcid 20 mg q.12h. 6. Anemia. Continue ferrous sulfate. 7. Transaminitis, etiology unclear. The patient not on any statins. 8. HIV status. The patient not on any antiretrovirals. I am not sure about the HIV status. 9. Deep venous thrombosis prophylaxis, heparin 5000 q.12h. 10. Hyperglobulinemia. The patient has albumin of 2.6 and globulin of 7.5. 11. Multiple myeloma to be ruled out. It can be as an outpatient from the [facility]. SPEP ordered. Protein electrophoresis ordered. Also, in summary, the patient has elevated troponin for which patient is getting Lexiscan and protein electrophoresis for high globulin levels and malnutrition. 12. Mild hyponatremia, which can be corrected by IV fluids. JOB# [id number] YOON/LUIS
--- NOTE | 2017-05-31 07:42 | Progress Note ---
Assessment and Plan - Elevated Toponin levels with no chest pain Oxygen NTG, ASA, Statin and BB Serial Sarah. For lexiscan test - PAD per Doppler done in [facility]F ASA stain Vacsular surgical consult - Right infra hilar mass per CXR 05/30/[address] chest - Hyponatremia Possibly secondary to right lung mass trend -Possilbe Multip,le myelona Folow up with SPEP and obtain UPEP - HIV No antiretroviral noteed in med list ID [email or web address] - Transaminasemia IV hydration and trend DVT and GI PPx with lovenox and Pepcid Subjective Date of service: 05/31/17 Principal diagnosis: PAD, HIV, right lung mass Interval history: Pt seen and examined. No new complaint. Discussed with his nurse. Objective - Constitutional Vitals: Vital Signs - 12hr 05/30/17 05/30/17 05/30/17 20:00 20:30 21:00 Temperature Pulse Rate 82 82 82 Pulse Rate [ Right Radial] Respiratory 22 21 22 Rate Blood Pressure 135/88 141/89 141/90 Blood Pressure [Left] O2 Sat by Pulse 98 98 98 Oximetry 05/30/17 05/30/17 05/30/17 21:30 22:00 22:30 Temperature Pulse Rate 78 80 82 Pulse Rate [ Right Radial] Respiratory 22 23 24 Rate Blood Pressure 141/91 146/90 149/94 Blood Pressure [Left] O2 Sat by Pulse 97 98 97 Oximetry 05/30/17 05/30/17 05/30/17 23:00 23:30 23:41 Temperature Pulse Rate 86 82 81 Pulse Rate [ Right Radial] Respiratory 18 23 22 Rate Blood Pressure 145/87 152/95 152/95 Blood Pressure [Left] O2 Sat by Pulse 98 98 98 Oximetry 05/30/17 05/31/17 05/31/17 23:45 00:00 00:30 Temperature Pulse Rate 82 88 84 Pulse Rate [ Right Radial] Respiratory 22 24 Rate Blood Pressure 152/95 136/89 136/88 Blood Pressure [Left] O2 Sat by Pulse 98 97 Oximetry 05/31/17 05/31/17 05/31/17 01:00 01:30 02:00 Temperature Pulse Rate 83 84 83 Pulse Rate [ Right Radial] Respiratory 24 22 21 Rate Blood Pressure 134/87 124/84 133/86 Blood Pressure [Left] O2 Sat by Pulse 97 98 98 Oximetry 0305/31/17 05/31/17 02:30 03:00 03:15 Temperature 98.3 F Pulse Rate 84 85 74 Pulse Rate [ Right Radial] Respiratory 21 22 18 Rate Blood Pressure 128/87 127/87 Blood Pressure 113/78 [Left] O2 Sat by Pulse 98 92 99 Oximetry 05/31/17 05/31/17 04:39 07:00 Temperature Pulse Rate Pulse Rate [ 80 Right Radial] Respiratory 18 18 Rate Blood Pressure Blood Pressure [Left] O2 Sat by Pulse Oximetry General appearance: Present: no acute distress, well-nourished - EENT Eyes: PERRL, EOM intact - Neck Neck: supple, normal ROM - Respiratory Respiratory effort: normal Respiratory: bilateral: CTA - Cardiovascular Rhythm: regular Heart Sounds: Present: S1 & S2. Absent: gallop, rub Extremities: pulses intact, No edema, normal color, Full ROM - Gastrointestinal General gastrointestinal: Present: soft, non-tender, non-distended, normal bowel sounds - Integumentary Integumentary: clear, warm, dry - Musculoskeletal Musculoskeletal: 1, strength equal bilaterally - Neurologic Neurologic: moves all extremities - Psychiatric Psychiatric: memory intact, appropriate mood/affect, intact judgment & insight - Labs CBC & Chem 7: 05/30/17 18:02 05/30/17 18:02 Labs: Abnormal lab results 05/30/17 05/30/17 05/30/17 Range/Units 18:02 18:02 21:32 WBC 12.1 H (4.5-11.0) K/mm3 RBC 5.04 H (3.65-5.03) M/mm3 MCV 80 L (84-94) fl MCH 26 L (28-32) pg Monocytes % (Manual) 20.0 H (0.0-7.3) % Monocytes # (Manual) 2.4 H (0.0-0.8) K/mm3 Sodium 134 L (137-145) mmol/L Chloride 95.7 L (98-107) mmol/L Creatinine 0.5 L (0.8-1.5) mg/dL AST 81 H (5-40) units/L Troponin T 0.148 H* 0.100 H D (0.00-0.029) ng/mL Total Protein 10.1 H (6.3-8.2) g/dL Albumin 2.6 L (3.9-5) g/dL LDL Cholesterol Direct 42 L (50-130) mg/dL HDL Cholesterol 28 L (40-59) mg/dL
[2017-05-31] MEDS: FERROUS SULFATE FEEDTUBE SCH (10:01)
[2017-05-31] MEDS: PEPCID FEEDTUBE SCH ×2 (10:51→21:45)
[2017-05-31] MEDS: COREG FEEDTUBE SCH ×2 (10:52→22:32)
[2017-05-31] MEDS: KEPPRA FEEDTUBE SCH ×2 (10:53→22:41)
[2017-05-31] MEDS: CEPHULAC PO SCH (10:53)
[2017-05-31] MEDS: COLACE FEEDTUBE SCH ×2 (11:00→22:30)
--- NOTE | 2017-05-31 11:30 | Event Note ---
Date: 05/31/17 Patient seen and examined Patient is not a candidate for stress testing due to comorbidities and inability to follow instructions Procedure will therefore be cancelled
[2017-05-31] MEDS ORDERED: SIMPLE SYRUP FEEDTUBE PRN ×4 (14:08→14:09)
[2017-05-31] MEDS ORDERED: PANCREAZE DR 10,500 UNIT FEEDTUBE PRN ×2 (14:08→14:09)
[2017-05-31] MEDS ORDERED: SODIUM BICARBONATE FEEDTUBE PRN ×2 (14:08→14:09)
--- NOTE | 2017-05-31 17:25 | Consultation ---
<FRANKMILEY WALLS - Last Filed: 05/31/17 17:16> History of Present Illness - Reason for Consult Consult date: 05/31/17 Requesting physician: LAURA WEBER - History of Present Illness This pt was admitted via the ER on 05/30/17. He is unable to provide any history and therefore the history has been taken from the medical record. There are reports of lower ext pain which apparently prompted a "duplex" at his intermediate. This reportedly showed and "occluded DP" and he was sent to the [facility] where he was evaluated. His troponins were reported as elevated and he has since been admitted. Past History Past Medical History: GERD, HIV/AIDS, hypertension, seizures, other (dementia) Past Surgical History: Other (Peg tube insertion o/w unknown) Social history: other (penitentiary resident, o/w unknown) Family history: other (unknown) Medications and Allergies Allergies Allergy/AdvReac Type Severity Reaction Status Date / Time No Known Allergies Allergy Unverified 01/31/17 20:00 Home Medications Medication Instructions Recorded Confirmed Last Taken Type Carvedilol [Coreg] 12.5 mg FEEDTUBE DAILY #0 02/01/17 05/31/17 1 Day Ago History ~05/30/17 Ferrous Sulfate [Ferosul Oral Liq] 220 mg FEEDTUBE QDAY 02/01/17 05/31/17 1 Day Ago History ~05/30/17 Glycerin [Adult Glycerin] 1 each RC PRN PRN #0 02/01/17 05/31/17 2 Weeks Ago History ~05/17/17 Sennosides/Docusate Sodium 17.2 mg FEEDTUBE QHS #0 02/01/17 05/31/17 1 Day Ago History [Senna-S Tablet] ~05/30/17 Tramadol HCl [traMADol ER 100 MG] 100 mg FEEDTUBE QDAY #0 02/01/17 05/31/17 1 Day Ago History ~05/30/17 VALPROIC ACID Liq [DepaKENE Liq] 125 mg FEEDTUBE DAILY #0 02/01/17 05/31/17 1 Day Ago History ~05/30/17 levETIRAcetam [Keppra ORAL LIQ] 1,500 mg FEEDTUBE BID #0 02/01/17 05/31/17 1 Day Ago History ~05/30/17 ALBUTEROL NEB's [Proventil 0.083% 2.5 mg IH Q4HRT PRN nebu 02/05/17 05/31/17 2 Weeks Ago Rx NEBS] ~05/17/17 Famotidine [Pepcid] 20 mg FEEDTUBE BID tablet 02/05/17 05/31/17 1 Day Ago Rx ~05/30/17 Lactulose [Cephulac] 10 gm PO QDAY oral.liqd 02/05/17 05/31/17 3 Days Ago Rx ~05/28/17 Active Meds: Active Medications Acetaminophen (Tylenol) 650 mg FEEDTUBE Q6H PRN PRN Reason: Fever Albuterol (Proventil) 2.5 mg IH Q4HRT PRN PRN Reason: Shortness Of Breath Lipase/Protease/Amylase (Pancreaze Dr 10,500 Unit) 1 each FEEDTUBE PRN PRN PRN Reason: For Clogged Feeding Tube Carvedilol (Coreg) 12.5 mg FEEDTUBE Q12H [facility] Last Admin: 05/31/17 10:52 Dose: 12.5 mg Docusate Sodium (Colace) 100 mg FEEDTUBE BID [facility] Last Admin: 05/31/17 11:00 Dose: 100 mg Famotidine (Pepcid) 20 mg FEEDTUBE BID [facility] Last Admin: 05/31/17 10:51 Dose: 20 mg Ferrous Sulfate (Ferrous Sulfate) 220 mg FEEDTUBE QDAY [facility] Last Admin: 05/31/17 10:01 Dose: 220 mg Sodium Chloride (Nacl 0.9% 1000 Ml) 1,000 mls @ 125 mls/hr IV DIRECT [facility] Last Admin: 05/31/17 17:03 Dose: 125 mls/hr Lactulose (Cephulac) 10 gm PO QDAY [facility] Last Admin: 05/31/17 10:53 Dose: 10 gm Levetiracetam (Keppra) 1,500 mg FEEDTUBE Q12H [facility] Last Admin: 05/31/17 10:53 Dose: 1,500 mg Senna/Docusate Sodium (Senokot S) 2 tab PO QHS [facility] Last Admin: 05/30/17 23:37 Dose: 2 tab Simple Syrup (Simple Syrup) 15 ml FEEDTUBE PRN PRN PRN Reason: Hypoglycemia Simple Syrup (Simple Syrup) 30 ml FEEDTUBE PRN PRN PRN Reason: Hypoglycemia Sodium Bicarbonate (Sodium Bicarbonate) 325 mg FEEDTUBE PRN PRN PRN Reason: For Clogged Feeding Tube Tramadol HCl (Ultram) 100 mg FEEDTUBE Q8HR [facility] Last Admin: 05/31/17 13:56 Dose: 100 mg Valproic Acid (Depakene Liq) 125 mg FEEDTUBE Q8HR [facility] Last Admin: 05/31/17 13:52 Dose: 125 mg Review of Systems ROS unobtainable: due to mental status Exam - Constitutional Vitals: Temp Pulse Resp BP Pulse Ox 98.0 F 82 16 109/71 99 05/31/17 15:32 05/31/17 15:32 05/31/17 15:32 05/31/17 15:32 05/31/17 15:32 General appearance: Present: no acute distress - EENT Eyes: Present: EOM intact ENT: hearing intact - Respiratory Respiratory effort: normal - Extremities Extremities: abnormal (contracted lower extemities at the hip and knees bilaterally) Extremity abnormal: ulceration (ulceration to the right foot (see ET nurse photos)), other (Palp DP and PT to the right foot, Palp DP to the left foot) - Psychiatric Psychiatric: no appropriate mood/affect, no intact judgment & insight, no cooperative Results - Labs CBC & Chem 7: 05/30/17 18:02 05/30/17 18:02 Labs: Abnormal lab results 05/30/17 05/30/17 05/30/17 Range/Units 18:02 18:02 21:32 WBC 12.1 H (4.5-11.0) K/mm3 RBC 5.04 H (3.65-5.03) M/mm3 MCV 80 L (84-94) fl MCH 26 L (28-32) pg Monocytes % (Manual) 20.0 H (0.0-7.3) % Monocytes # (Manual) 2.4 H (0.0-0.8) K/mm3 Sodium 134 L (137-145) mmol/L Chloride 95.7 L (98-107) mmol/L Creatinine 0.5 L (0.8-1.5) mg/dL AST 81 H (5-40) units/L Troponin T 0.148 H* 0.100 H D (0.00-0.029) ng/mL Total Protein 10.1 H (6.3-8.2) g/dL Albumin 2.6 L (3.9-5) g/dL LDL Cholesterol Direct 42 L (50-130) mg/dL HDL Cholesterol 28 L (40-59) mg/dL 05/31/17 05/31/17 Range/Units 07:07 10:31 WBC (4.5-11.0) K/mm3 RBC (3.65-5.03) M/mm3 MCV (84-94) fl MCH (28-32) pg Monocytes % (Manual) (0.0-7.3) % Monocytes # (Manual) (0.0-0.8) K/mm3 Sodium (137-145) mmol/L Chloride (98-107) mmol/L Creatinine (0.8-1.5) mg/dL AST (5-40) units/L Troponin T 0.081 H 0.077 H (0.00-0.029) ng/mL Total Protein (6.3-8.2) g/dL Albumin (3.9-5) g/dL LDL Cholesterol Direct (50-130) mg/dL HDL Cholesterol (40-59) mg/dL Assessment and Plan Pt has bilater lower ext contractures, and has developed a wound to his right foot. He has easily palp DP pulses bilaterally despite an outside facility u/s which reportedly suggest the right dp was occluded. No vascular surgery intervention recommended at this point. Continue local wound care, and offloading pressure as possible. Medical work-up in progress. - Patient Problems (1) Pressure ulcer Current Visit: Yes Status: Acute (2) Contracture of muscle of lower extremity, bilateral Current Visit: Yes Status: Acute (3) Dementia Current Visit: Yes Status: Acute (4) HIV (human immunodeficiency virus infection) Current Visit: Yes Status: Acute (5) HTN (hypertension) Current Visit: Yes Status: Acute (6) Elevated troponin Current Visit: Yes Status: Acute <EMILY KIRAN - Last Filed: 05/31/17 20:17> Medications and Allergies Active Meds: Active Medications Acetaminophen (Tylenol) 650 mg FEEDTUBE Q6H PRN PRN Reason: Fever Albuterol (Proventil) 2.5 mg IH Q4HRT PRN PRN Reason: Shortness Of Breath Lipase/Protease/Amylase (Pancreaze Dr 10,500 Unit) 1 each FEEDTUBE PRN PRN PRN Reason: For Clogged Feeding Tube Carvedilol (Coreg) 12.5 mg FEEDTUBE Q12H [facility] Last Admin: 05/31/17 10:52 Dose: 12.5 mg Docusate Sodium (Colace) 100 mg FEEDTUBE BID [facility] Last Admin: 05/31/17 11:00 Dose: 100 mg Famotidine (Pepcid) 20 mg FEEDTUBE BID [facility] Last Admin: 05/31/17 10:51 Dose: 20 mg Ferrous Sulfate (Ferrous Sulfate) 220 mg FEEDTUBE QDAY [facility] Last Admin: 05/31/17 10:01 Dose: 220 mg Sodium Chloride (Nacl 0.9% 1000 Ml) 1,000 mls @ 125 mls/hr IV DIRECT [facility] Last Admin: 05/31/17 17:03 Dose: 125 mls/hr Lactulose (Cephulac) 10 gm PO QDAY [facility] Last Admin: 05/31/17 10:53 Dose: 10 gm Levetiracetam (Keppra) 1,500 mg FEEDTUBE Q12H [facility] Last Admin: 05/31/17 10:53 Dose: 1,500 mg Senna/Docusate Sodium (Senokot S) 2 tab PO QHS [facility] Last Admin: 05/30/17 23:37 Dose: 2 tab Simple Syrup (Simple Syrup) 15 ml FEEDTUBE PRN PRN PRN Reason: Hypoglycemia Simple Syrup (Simple Syrup) 30 ml FEEDTUBE PRN PRN PRN Reason: Hypoglycemia Sodium Bicarbonate (Sodium Bicarbonate) 325 mg FEEDTUBE PRN PRN PRN Reason: For Clogged Feeding Tube Tramadol HCl (Ultram) 100 mg FEEDTUBE Q8HR [facility] Last Admin: 05/31/17 13:56 Dose: 100 mg Valproic Acid (Depakene Liq) 125 mg FEEDTUBE Q8HR [facility] Last Admin: 05/31/17 13:52 Dose: 125 mg Review of Systems Constitutional: no anorexia Exam - Constitutional Vitals: Temp Pulse Resp BP Pulse Ox 98.3 F 64 20 111/77 99 05/31/17 19:59 05/31/17 19:59 05/31/17 19:59 05/31/17 19:59 05/31/17 19:59 Results - Labs CBC & Chem 7: 05/30/17 18:02 05/30/17 18:02 Labs: Abnormal lab results 05/30/17 05/31/17 05/31/17 Range/Units 21:32 07:07 10:31 Troponin T 0.100 H D 0.081 H 0.077 H (0.00-0.029) ng/mL
[2017-05-31] MEDS: SENOKOT S PO SCH (22:41)
[2017-06-01] MEDS: DepaKENE Liq FEEDTUBE SCH ×3 (05:46→21:39)
[2017-06-01] MEDS: ULTRAM FEEDTUBE SCH ×3 (05:47→21:39)
[2017-06-01] MEDS: NACL 0.9% 1000 ML 1,000 ML IV SCH (05:48)
[2017-06-01] MEDS ORDERED: NACL ONE ×3 (07:40→14:26)
[2017-06-01 08:54] LABS: Hematocrit 34.9 % (35.5-45.6); Hemoglobin 11.4 gm/dl (11.8-15.2); Mean Corpuscular HGB Conc 33 % (32-34); Mean Corpuscular Volume 79 fl (84-94); Platelet Count 194 K/mm3 (140-440); Red Blood Count 4.43 M/mm3 (3.65-5.03); Red Cell Distribution Width 13.5 % (13.2-15.2)
[2017-06-01 09:01] LABS: Mean Corpuscular Hemoglobin 26 pg (28-32)
[2017-06-01 09:18] LABS: Alanine Aminotransferase 47 units/L (7-56); Albumin 2.3 g/dL (3.9-5); BUN/Creatinine Ratio 35; Blood Urea Nitrogen 14 mg/dL (9-20); Calcium 8.4 mg/dL (8.4-10.2); Hemolysis Index 5
[2017-06-01] MEDS: FERROUS SULFATE FEEDTUBE SCH (10:11)
[2017-06-01] MEDS: PEPCID FEEDTUBE SCH ×2 (10:12→21:43)
[2017-06-01] MEDS: CEPHULAC PO SCH (10:13)
[2017-06-01] MEDS: COREG FEEDTUBE SCH ×2 (10:14→21:47)
[2017-06-01] MEDS: COLACE FEEDTUBE SCH ×2 (10:14→21:43)
[2017-06-01] MEDS: KEPPRA FEEDTUBE SCH ×2 (10:14→21:40)
--- NOTE | 2017-06-01 11:10 | Progress Note ---
Assessment and Plan - Elevated Toponin levels with no chest pain Oxygen NTG, ASA, Statin and BB Stress test cancelled by cardiology b/c ofmultiple cardiac problems. Pt had contractures and bed bound - PAD per Doppler done in SNF ASA stain Vascular surgery r/o any vascular disease - Right infra hilar mass per CXR 05/30/17 CT chest pending - Hyponatremia Possibly secondary to right lung mass controlled -Possilbe Multiple myelona Follow up with [facility] and obtain UPEP - HIV No antiretroviral noted in med list To f/u up with PCP on out pt bases - Transaminasemia corrected DVT and GI PPx with lovenox and Pepcid Dispositon: d/c after if CT chest is normal. may commence antirepCT chest adn if normal Subjective Date of service: 06/01/17 Principal diagnosis: PAD, HIV, right lung mass Interval history: Pt seen and examined. No new complaint. Discussed with his nurse. Objective - Constitutional Vitals: Vital Signs - 12hr 06/01/17 06/01/17 06/01/17 01:18 04:37 04:44 Temperature 98.2 F Pulse Rate 73 77 Respiratory 20 20 Rate Blood Pressure 141/77 [Left] O2 Sat by Pulse 98 Oximetry 06/01/17 06/01/17 04:54 07:29 Temperature 97.6 F Pulse Rate 84 91 H Respiratory 18 Rate Blood Pressure 121/68 [Left] O2 Sat by Pulse Oximetry General appearance: Present: no acute distress, well-nourished - EENT Eyes: PERRL, EOM intact Ears: bilateral: normal - Neck Neck: supple, normal ROM - Respiratory Respiratory effort: normal Respiratory: bilateral: CTA - Cardiovascular Rhythm: regular Heart Sounds: Present: S1 & S2. Absent: gallop, rub Extremities: pulses intact, No edema, normal color, Full ROM - Gastrointestinal General gastrointestinal: Present: soft, non-tender, non-distended, normal bowel sounds - Genitourinary Male genitourinary: normal - Integumentary Integumentary: clear, warm, dry - Musculoskeletal Musculoskeletal: 1, strength equal bilaterally - Neurologic Neurologic: moves all extremities - Psychiatric Psychiatric: memory intact, appropriate mood/affect, intact judgment & insight - Labs CBC & Chem 7: 06/01/17 07:45 06/01/17 07:45 Labs: Abnormal lab results 05/31/17 06/01/17 06/01/17 Range/Units 10:31 07:45 07:45 Hgb 11.4 L (11.8-15.2) gm/dl Hct 34.9 L (35.5-45.6) % MCV 79 L (84-94) fl MCH 26 L (28-32) pg Creatinine 0.4 L (0.8-1.5) mg/dL Glucose 101 H (75-100) mg/dL AST 103 H (5-40) units/L Troponin T 0.077 H (0.00-0.029) ng/mL Total Protein 9.7 H (6.3-8.2) g/dL Albumin 2.3 L (3.9-5) g/dL
[2017-06-01 12:07] LABS: Band Neutrophils # (Manual) 0.1 K/mm3; Basophils % (Manual) 0 % (0.0-1.8); Eosinophils % (Manual) 0 % (0.0-4.3); Total Cells Counted 100
[2017-06-01 12:08] LABS: Anisocytosis 1+; Platelet Estimate Consistent w Auto; Spherocytes 1+
--- NOTE | 2017-06-01 17:46 | Cat Scan Report ---
FINAL REPORT EXAM: CT CHEST W CON HISTORY: right infra hilar mass TECHNIQUE: CT examination of the chest after IV contrast PRIORS: One-view chest 05/30/[address] 04/20/2017 FINDINGS: Normal cardiac size without pericardial effusion intact normal caliber thoracic aorta. Normal-appearing esophagus. No evidence of hilar mass or mediastinal adenopathy. The visible pulmonary arteries are diffusely patent. Patient arm in the diagnostic [id number] degrades image quality and limits the examination. A smoothly marginated hyperdense enhancing right hepatic lobe lesion is nonspecific and statistically most likely reflect a hemangioma. Size is approximately 23 mm. Small calcified granuloma in the spleen. A nonspecific, smoothly marginated, low density, simple appearing left renal lesion is statistically most likely a cyst. It measures 12 mm. No evidence of acute fracture. No pneumothorax or pleural effusion. Upper lobe pulmonary emphysema. No CT evidence of mass inferior to the right hilum. Triangular opacity in the posterolateral right lower lobe extends to the subpleural surface and may be scar and/or atelectasis. Nonspecific pleural thickening is noted in the posterior inferior left lung base. Adjacent to this are multiple nodular opacities in the left lower lobe parenchyma. These are new from the prior CT exam of last month. They may be areas of edema and/or pneumonia. Given nodular configuration, they should be followed until resolution since the largest lesion is 14 mm. IMPRESSION: No CT evidence of right infrahilar mass New multiple nodular opacities in the left lower lobe adjacent pleural thickening. These may be areas of atelectasis and/or pneumonia. They are less likely to represent neoplasm since they are new from 6 weeks ago. Recommend followup chest CT in 3 months to ensure resolution Stable homogeneous enhancing hypodense lesion in right liver most compatible with hemangioma Bilateral upper lobe pulmonary emphysema Slightly larger triangular subpleural opacity in the posterior right lower lobe is most compatible with a combination of scar and atelectasis, as well as possibly a small focus of pneumonia
[2017-06-01] MEDS: SENOKOT S PO SCH (21:42)
[2017-06-02] MEDS: ULTRAM FEEDTUBE SCH ×2 (05:30→15:40)
[2017-06-02] MEDS: DepaKENE Liq FEEDTUBE SCH ×2 (05:32→15:41)
[2017-06-02 06:33] LABS: Hematocrit 35.1 % (35.5-45.6); Hemoglobin 11.5 gm/dl (11.8-15.2); Mean Corpuscular HGB Conc 33 % (32-34); Mean Corpuscular Volume 78 fl (84-94); Platelet Count 183 K/mm3 (140-440); Red Blood Count 4.53 M/mm3 (3.65-5.03); Red Cell Distribution Width 13.6 % (13.2-15.2)
[2017-06-02 06:34] LABS: Mean Corpuscular Hemoglobin 25 pg (28-32)
[2017-06-02 06:58] LABS: Alanine Aminotransferase 44 units/L (7-56); Albumin 2.2 g/dL (3.9-5); BUN/Creatinine Ratio 24; Blood Urea Nitrogen 12 mg/dL (9-20); Calcium 8.4 mg/dL (8.4-10.2); Hemolysis Index 1
[2017-06-02 08:19] LABS: Anisocytosis 1+; Band Neutrophils # (Manual) 0.1 K/mm3; Basophils % (Manual) 0 % (0.0-1.8); Total Cells Counted 100
[2017-06-02 08:20] LABS: Spherocytes Few; Target Cells Few
[2017-06-02 08:21] LABS: Hypochromasia 1+
[2017-06-02] MEDS: CEPHULAC PO SCH (11:10)
[2017-06-02] MEDS: COLACE FEEDTUBE SCH (11:10)
[2017-06-02] MEDS: KEPPRA FEEDTUBE SCH (11:30)
[2017-06-02] MEDS: PEPCID FEEDTUBE SCH (11:37)
[2017-06-02] MEDS: FERROUS SULFATE FEEDTUBE SCH (11:37)
[2017-06-02] MEDS: COREG FEEDTUBE SCH (11:39)
--- NOTE | 2017-06-02 11:40 | Discharge Summary ---
Providers - Providers Date of Admission: 05/30/17 19:36 Date of discharge: 06/02/17 Attending physician: EMILY KIRAN 05/31/17 05:35 Consult to Dietitian/Nutrition [CONS] Routine Physician Instructions: Reason For Exam: Malnutrition Reason for Consult: Malnutrition 05/31/17 05:36 Consult to Physician [CONS] Routine Comment: Consulting Provider: JENNIFER NEFF Physician Instructions: Reason For Exam: DP occlusion 05/31/17 08:00 Consult to Dietitian/Nutrition [CONS] Routine Physician Instructions: Reason For Exam: Reason for Consult: Write/Manage Tube Feeding Consult to Wound/ET Nurse [CONS] Routine Reason For Exam: wound eval Occupational Therapy Evaluate and Treat [CONS] Routine Comment: Reason For Exam: protocol Physical Therapy Evaluation and Treat [CONS] Routine Comment: Reason For Exam: protocol Speech Therapy Evaluation and Treat [CONS] Routine Reason For Exam: protocol Primary care physician: DANAY GOMEZ Hospitalization Reason for admission: presummd PAD Condition: Stable Pertinent studies: arterial doppler that were unremarkable Procedures: none Hospital course: This pt is a 61 y/o male who is a SNF resident on PEG tube was admitted via the ER on 05/30/17. He is unable to provide any history and therefore the history has been taken from the medical record. There are reports of lower ext pain which apparently prompted a "duplex" at his correction. This reportedly showed and "occluded DP" and he was sent to the [facility] where he was evaluated. His troponins were elevated however pt has no chest pain. Vascular surgical consult was obtained. Repeat arterial doppler though technically difficult b/c of contracture was reported as unremarkable. CXR on at the ed showed right subhilar opacity for which CT chest was recommended. Report of the CT chest was devoid of any neoplasm. Multiple nodular opacities on the left were thought to be atelectasis vs pneumonia. However clinical correlation is not suggestive of pneumonia. Pt continue to be alert and oreibnted x 2. Was requesting for cigerette today being discharged to f/u with PCP with 3-5 days Disposition: [id number]/[place]-03 SNF [facility] Time spent for discharge: 33 min - Discharge Diagnoses (1) Contracture of muscle of lower extremity, bilateral Status: Acute (2) Dementia Status: Acute (3) Elevated troponin Status: Acute (4) HIV (human immunodeficiency virus infection) Status: Acute (5) HTN (hypertension) Status: Acute (6) Constipation Status: Acute Core Measure Documentation - Palliative Care Palliative Care/ Comfort Measures: Not Applicable - Core Measures Any of the following diagnoses?: none Exam - Constitutional Vitals: Temp Pulse Resp BP Pulse Ox 99.9 F H 91 H 20 128/78 98 06/02/17 11:04 06/02/17 11:04 06/02/17 11:04 06/02/17 11:04 06/02/17 11:04 General appearance: Present: other (bed bound with contracture of the LEs) - EENT Eyes: Present: PERRL - Neck Neck: Present: supple, normal ROM - Respiratory Respiratory effort: normal Respiratory: bilateral: CTA - Cardiovascular Heart Sounds: Present: S1 & S2. Absent: rub, click - Extremities Extremities: pulses symmetrical, No edema Peripheral Pulses: within normal limits - Abdominal General gastrointestinal: Present: soft, non-tender, non-distended, normal bowel sounds, other (PEG tube in place) - Integumentary Integumentary: Present: clear, warm, dry - Musculoskeletal Musculoskeletal: gait normal, strength equal bilaterally - Psychiatric Psychiatric: appropriate mood/affect, intact judgment & insight - Neurologic Neurologic: CNII-XII intact, moves all extremities Plan Activity: fall precautions Weight Bearing Status: Non-Weight Bearing Diet: diabetic Follow up with: DANAY GOMEZ MD [Primary Care Provider] - 7 Days
[2017-06-02 18:06] VITALS: BP 122/78
[2017-06-02 23:04] LABS: Albumin 2.4 g/dL (3.8-4.8); Gamma Globulin 5.4 g/dL (0.8-1.7)
== END 2017-06-02 20:25 | DRG 299 ==
LOC: ED 16:51 → 4A 19:36
PROVIDERS: ADMIT Internal Medicine; ATTEND Family Medicine
DX: I73.9 Peripheral vascular disease, unspecified (principal); B20 Human immunodeficiency virus [HIV] disease; E87.1 Hypo-osmolality and hyponatremia; M62.462 Contracture of muscle, left lower leg; R91.8 Other nonspecific abnormal finding of lung field; Z86.73 Personal history of transient ischemic attack (TIA), and cerebral infarction without residual deficits; I10 Essential (primary) hypertension; K21.9 Gastro-esophageal reflux disease without esophagitis; F03.90 Unspecified dementia, unspecified severity, without behavioral disturbance, psychotic disturbance, mood disturbance, and anxiety; G40.909 Epilepsy, unspecified, not intractable, without status epilepticus; D64.9 Anemia, unspecified; M62.461 Contracture of muscle, right lower leg; L89.90 Pressure ulcer of unspecified site, unspecified stage; Z93.1 Gastrostomy status
CPT/HCPCS: 36415; 71045; 71260; 80053; 80061; 82962; 84165; 84484; 85007; 85025; 85610; 85730; 87535; 93005; 93010; 93922; 93925; G8996-GN; G8997-GN; G8998-GN; J7030; Q9967